=== PATIENT | male | born 1945 | race Caucasian/White ===

== ENCOUNTER 2016-08-08 15:04 | Outpatient (CLI) | payer BC | END 2016-08-08 15:05 | disposition home or self-care (01) | DX: Z95.2 Presence of prosthetic heart valve (principal) ==

== ENCOUNTER 2016-08-20 11:02 | Outpatient (CLI) | payer BC | END 2016-08-20 11:03 | disposition home or self-care (01) | DX: Z95.2 Presence of prosthetic heart valve (principal) ==

== ENCOUNTER 2016-09-18 11:02 | Outpatient (CLI) | payer BC | END 2016-09-18 11:03 | disposition home or self-care (01) | DX: Z95.2 Presence of prosthetic heart valve (principal) ==

== ENCOUNTER 2016-10-08 11:03 | Outpatient (CLI) | payer MEDICARE | END 2016-10-08 11:04 | disposition home or self-care (01) | DX: Z95.2 Presence of prosthetic heart valve (principal) ==

== ENCOUNTER 2016-10-11 09:40 | Outpatient (CLI) | payer MEDICARE | END 2016-10-11 09:41 | disposition home or self-care (01) | DX: Z95.2 Presence of prosthetic heart valve (principal) ==

== ENCOUNTER 2016-11-05 11:08 | Outpatient (CLI) | payer MEDICARE | END 2016-11-05 11:09 | disposition home or self-care (01) | DX: Z95.2 Presence of prosthetic heart valve (principal) ==

== ENCOUNTER 2017-01-28 14:12 | Outpatient (CLI) | payer MEDICARE ==
[2017-01-28 18:23] LABS: HCT - HEMATOCRIT 25.3 % (42.0-52.0); HGB - HEMOGLOBIN 8.5 g/dL (14.0-18.0)
[2017-01-28 18:38] LABS: CALCIUM 8.8 mg/dL (8.5-10.3); CREATININE 0.9 mg/dL (0.6-1.2); POTASSIUM 3.7 mmol/L (3.5-5.0)
== END 2017-01-28 14:13 | disposition home or self-care (01) ==
LOC: LAB.F 14:12
PROVIDERS: ATTEND Internal Medicine
DX: Z95.2 Presence of prosthetic heart valve (principal); K92.2 Gastrointestinal hemorrhage, unspecified
CPT/HCPCS: 36415; 80048; 85014; 85018; 85610

== ENCOUNTER 2017-01-30 10:17 | Outpatient (CLI) | payer MEDICARE ==
[2017-01-30 18:01] LABS: HCT - HEMATOCRIT 26.9 % (42.0-52.0); HGB - HEMOGLOBIN 8.7 g/dL (14.0-18.0)
== END 2017-01-30 10:18 | disposition home or self-care (01) ==
LOC: LAB.F 10:17
PROVIDERS: ATTEND Internal Medicine
DX: Z95.2 Presence of prosthetic heart valve (principal); K92.2 Gastrointestinal hemorrhage, unspecified
CPT/HCPCS: 36415; 85014; 85018; 85610

== ENCOUNTER 2017-02-02 08:00 | Outpatient (CLI) | payer MEDICARE ==
[2017-02-02 18:08] LABS: HCT - HEMATOCRIT 27.5 % (42.0-52.0)
== END 2017-02-02 08:01 | disposition home or self-care (01) ==
LOC: LAB.F 08:00
PROVIDERS: ATTEND Internal Medicine
DX: K92.2 Gastrointestinal hemorrhage, unspecified (principal); Z95.2 Presence of prosthetic heart valve
CPT/HCPCS: 36415; 85014; 85018; 85610

== ENCOUNTER 2017-02-09 13:17 | Outpatient (CLI) | payer MEDICARE | END 2017-02-09 13:18 | disposition home or self-care (01) | LOC: LAB.F 13:17 | PROVIDERS: ATTEND Internal Medicine | DX: Z95.2 Presence of prosthetic heart valve (principal) | CPT/HCPCS: 85610 ==

== ENCOUNTER 2017-02-13 09:35 | Outpatient (CLI) | payer MEDICARE ==
[2017-02-13 19:35] LABS: HCT - HEMATOCRIT 31.7 % (42.0-52.0); MEAN CORPUSCULAR HEMOGLOBIN 27.8 pg (27.0-31.0); MEAN CORPUSCULAR HGB CONC 31.7 g/dL (32.0-36.0); MEAN CORPUSCULAR VOLUME 87.7 fL (80.0-94.0); MEAN PLATELET VOLUME 8.9 fL (7.4-11.4); RED BLOOD COUNT 3.61 10^6/uL (4.70-6.10); RED CELL DISTRIBUTION WIDTH 17.1 % (12.0-15.0); WHITE BLOOD COUNT 3.2 x10^3/uL (4.8-10.8)
[2017-02-13 20:02] LABS: PSA TOTAL 0.833 ng/mL (0.000-2.000)
[2017-02-13 20:09] LABS: ALBUMIN/GLOBULIN RATIO 1.6 (1.0-2.2); BILIRUBIN,TOTAL 0.6 mg/dL (0.2-1.0); BUN - BLOOD UREA NITROGEN 16 mg/dL (6-20); CALCIUM 8.9 mg/dL (8.5-10.3); CARBON DIOXIDE - CO2 24 mmol/L (21-32); CHLORIDE 105 mmol/L (101-111); CHOL/HDL RATIO 5.4 (<5.0); CHOLESTEROL 173 mg/dL; CREATININE 0.8 mg/dL (0.6-1.2); GFR - MDRD 96 (>89); GLUCOSE 168 mg/dL (70-100); HDL CHOLESTEROL 32 mg/dL; POTASSIUM 4.3 mmol/L (3.5-5.0); SODIUM 136 mmol/L (135-145); TOTAL PROTEIN 6.9 g/dL (6.7-8.2); TRIGLYCERIDES 223 mg/dL; VLDL CHOLESTEROL 45 mg/dL
[2017-02-13 20:39] LABS: HEMOGLOBIN A1C 0.44 g/dL
== END 2017-02-13 09:36 | disposition home or self-care (01) ==
LOC: LAB.F 09:35
PROVIDERS: ATTEND Internal Medicine
DX: Z00.00 Encounter for general adult medical examination without abnormal findings (principal); I77.810 Thoracic aortic ectasia; I50.22 Chronic systolic (congestive) heart failure; M19.90 Unspecified osteoarthritis, unspecified site; I25.119 Atherosclerotic heart disease of native coronary artery with unspecified angina pectoris; E78.4 Other hyperlipidemia; E29.1 Testicular hypofunction
CPT/HCPCS: 36415; 80053; 80061; 82728; 83036; 84153; 84403

== ENCOUNTER 2017-02-23 09:52 | Outpatient (CLI) | payer MEDICARE | END 2017-02-23 09:53 | disposition home or self-care (01) | LOC: LAB.F 09:52 | PROVIDERS: ATTEND Internal Medicine | DX: Z95.2 Presence of prosthetic heart valve (principal) | CPT/HCPCS: 85610 ==

== ENCOUNTER 2017-03-11 09:44 | Outpatient (CLI) | payer MEDICARE | END 2017-03-11 09:45 | disposition home or self-care (01) | LOC: LAB.F 09:44 | PROVIDERS: ATTEND Internal Medicine | DX: Z95.2 Presence of prosthetic heart valve (principal) | CPT/HCPCS: 85610 ==

== ENCOUNTER 2017-03-16 09:28 | Outpatient (CLI) | payer MEDICARE | END 2017-03-16 09:29 | disposition home or self-care (01) | LOC: LAB.F 09:28 | PROVIDERS: ATTEND Internal Medicine | DX: Z95.2 Presence of prosthetic heart valve (principal) | CPT/HCPCS: 85610 ==

== ENCOUNTER → 2017-03-30 | Outpatient (CLI) | payer MEDICARE ==
[2017-03-30 18:42] LABS: INR 2.6 (0.8-1.2); PT - PROTHROMBIN TIME 29.6 secs (9.9-12.6)
== END ==
LOC: LAB.F 08:00
PROVIDERS: ATTEND Internal Medicine
DX: Z95.2 Presence of prosthetic heart valve (principal); Z51.81 Encounter for therapeutic drug level monitoring; Z79.01 Long term (current) use of anticoagulants
CPT/HCPCS: 36415; 85610

== ENCOUNTER 2017-04-14 13:14 | Outpatient (CLI) | payer MEDICARE | END 2017-04-14 13:15 | disposition home or self-care (01) | LOC: LAB.F 13:14 | PROVIDERS: ATTEND Internal Medicine | DX: Z95.2 Presence of prosthetic heart valve (principal) | CPT/HCPCS: 85610 ==

== ENCOUNTER 2017-04-17 12:31 | Outpatient (CLI) | payer MEDICARE | END 2017-04-17 12:32 | disposition home or self-care (01) | LOC: LAB.F 12:31 | PROVIDERS: ATTEND Internal Medicine | DX: Z95.2 Presence of prosthetic heart valve (principal) | CPT/HCPCS: 85610 ==

== ENCOUNTER 2017-05-01 10:48 | Outpatient (CLI) | payer MEDICARE | END 2017-05-01 10:49 | disposition home or self-care (01) | LOC: LAB.F 10:48 | PROVIDERS: ATTEND Internal Medicine | DX: Z95.2 Presence of prosthetic heart valve (principal) | CPT/HCPCS: 85610 ==

== ENCOUNTER 2017-06-30 10:20 | Outpatient (CLI) | payer MEDICARE | END 2017-06-30 10:21 | disposition home or self-care (01) | LOC: LAB.F 10:20 | PROVIDERS: ATTEND Internal Medicine | DX: Z95.2 Presence of prosthetic heart valve (principal) | CPT/HCPCS: 85610 ==

== ENCOUNTER 2017-07-30 11:10 | Outpatient (CLI) | payer MEDICARE | END 2017-07-30 11:11 | disposition home or self-care (01) | LOC: LAB.F 11:10 | PROVIDERS: ATTEND Internal Medicine | DX: Z95.2 Presence of prosthetic heart valve (principal) | CPT/HCPCS: 85610 ==

== ENCOUNTER 2017-09-04 11:19 | Outpatient (CLI) | payer MEDICARE | END 2017-09-04 11:20 | disposition home or self-care (01) | LOC: LAB.F 11:19 | PROVIDERS: ATTEND Internal Medicine | DX: Z95.2 Presence of prosthetic heart valve (principal) | CPT/HCPCS: 85610 ==

== ENCOUNTER 2017-09-14 11:18 | Outpatient (CLI) | payer MEDICARE | END 2017-09-14 11:19 | disposition home or self-care (01) | LOC: LAB.F 11:18 | PROVIDERS: ATTEND Internal Medicine | DX: Z95.2 Presence of prosthetic heart valve (principal) | CPT/HCPCS: 85610 ==

== ENCOUNTER 2017-09-15 08:00 | Outpatient (CLI) | payer MEDICARE ==
[2017-09-15 17:47] LABS: HGB - HEMOGLOBIN 10.1 g/dL (14.0-18.0); MEAN CORPUSCULAR HEMOGLOBIN 28.4 pg (27.0-31.0); MEAN CORPUSCULAR HGB CONC 32.5 g/dL (32.0-36.0); MEAN CORPUSCULAR VOLUME 87.4 fL (80.0-94.0); MEAN PLATELET VOLUME 8.9 fL (7.4-11.4); RED BLOOD COUNT 3.54 10^6/uL (4.70-6.10); RED CELL DISTRIBUTION WIDTH 15.1 % (12.0-15.0); WHITE BLOOD COUNT 4.5 x10^3/uL (4.8-10.8)
[2017-09-15 18:03] LABS: CALCIUM 8.7 mg/dL (8.5-10.3); CREATININE 0.9 mg/dL (0.6-1.2)
[2017-09-15 18:35] LABS: HB2 TOTAL 10.6 g/dL; HEMOGLOBIN A1C 0.74 g/dL; HEMOGLOBIN A1C % 8.5 % (4.6-6.2)
[2017-09-15 18:49] LABS: CREATININE,URINE 198.5 mg/dL; MICROALBUM/CREATININE RATIO,UR 23.2 ug/mg (<30.0); MICROALBUMIN,URINE 4.6 mg/dL (0-300.0)
== END 2017-09-15 08:01 | disposition home or self-care (01) ==
LOC: LAB.R 08:00
PROVIDERS: ATTEND Internal Medicine
DX: E11.9 Type 2 diabetes mellitus without complications (principal); Z79.4 Long term (current) use of insulin; I50.42 Chronic combined systolic (congestive) and diastolic (congestive) heart failure; I48.4 Atypical atrial flutter; I47.1 Supraventricular tachycardia; M19.90 Unspecified osteoarthritis, unspecified site; E78.4 Other hyperlipidemia; E34.9 Endocrine disorder, unspecified
CPT/HCPCS: 80048; 82043; 82570; 82728; 83036

== ENCOUNTER 2017-09-22 14:27 | Outpatient (CLI) | payer MEDICARE | END 2017-09-22 14:28 | disposition home or self-care (01) | LOC: LAB.F 14:27 | PROVIDERS: ATTEND Internal Medicine | DX: Z95.2 Presence of prosthetic heart valve (principal) | CPT/HCPCS: 85610 ==

== ENCOUNTER 2017-09-30 04:24 | Outpatient (CLI) | payer MEDICARE | END 2017-09-30 04:25 | disposition short-term general hospital (02) | LOC: EMS 04:24 | PROVIDERS: ATTEND Surgery | DX: K92.0 Hematemesis (principal); R55 Syncope and collapse; R42 Dizziness and giddiness; R53.1 Weakness; W18.39XA Other fall on same level, initial encounter; W22.8XXA Striking against or struck by other objects, initial encounter; Y92.003 Bedroom of unspecified non-institutional (private) residence as the place of occurrence of the external cause; Z79.01 Long term (current) use of anticoagulants | CPT/HCPCS: A0170; A0425; A0427 ==

== ENCOUNTER 2017-10-16 08:00 | Outpatient (CLI) | payer MEDICARE | END 2017-10-16 08:01 | disposition home or self-care (01) | LOC: LAB.F 08:00 | PROVIDERS: ATTEND Internal Medicine | DX: Z95.2 Presence of prosthetic heart valve (principal) ==

== ENCOUNTER 2017-10-19 08:00 | Outpatient (CLI) | payer MEDICARE ==
[2017-10-19 18:01] LABS: INR 1.2 (0.8-1.2); PT - PROTHROMBIN TIME 13.1 secs (9.9-12.6)
== END 2017-10-19 08:01 | disposition home or self-care (01) ==
LOC: LAB.F 08:00
PROVIDERS: ATTEND Internal Medicine
DX: Z95.2 Presence of prosthetic heart valve (principal)
CPT/HCPCS: 36415; 85610

== ENCOUNTER 2017-10-28 13:23 | Outpatient (CLI) | payer MEDICARE ==
[2017-10-28 17:58] LABS: INR 2.3 (0.8-1.2); PT - PROTHROMBIN TIME 25.2 secs (9.9-12.6)
== END 2017-10-28 13:24 | disposition home or self-care (01) ==
LOC: LAB.F 13:23
PROVIDERS: ATTEND Internal Medicine
DX: Z95.2 Presence of prosthetic heart valve (principal)
CPT/HCPCS: 36415; 85610

== ENCOUNTER 2017-12-09 13:07 | Outpatient (CLI) | payer MEDICARE | END 2017-12-09 13:08 | disposition home or self-care (01) | LOC: LAB 13:07 | PROVIDERS: ATTEND Internal Medicine | DX: Z95.2 Presence of prosthetic heart valve (principal) | CPT/HCPCS: 85610 ==

== ENCOUNTER 2017-12-15 11:02 | Outpatient (CLI) | payer MEDICARE | END 2017-12-15 11:03 | disposition home or self-care (01) | LOC: LAB.F 11:02 | PROVIDERS: ATTEND Internal Medicine | DX: Z95.2 Presence of prosthetic heart valve (principal) | CPT/HCPCS: 85610 ==

== ENCOUNTER 2017-12-22 08:23 | Outpatient (CLI) | payer MEDICARE | END 2017-12-22 08:24 | disposition home or self-care (01) | LOC: LAB.F 08:23 | PROVIDERS: ATTEND Internal Medicine | DX: Z95.2 Presence of prosthetic heart valve (principal) | CPT/HCPCS: 85610 ==

== ENCOUNTER 2017-12-29 11:22 | Outpatient (CLI) | payer MEDICARE | END 2017-12-29 11:23 | disposition home or self-care (01) | LOC: LAB.F 11:22 | PROVIDERS: ATTEND Internal Medicine | DX: Z95.2 Presence of prosthetic heart valve (principal) | CPT/HCPCS: 85610 ==

== ENCOUNTER 2018-01-12 13:25 | Outpatient (CLI) | payer MEDICARE | END 2018-01-12 13:26 | disposition home or self-care (01) | LOC: LAB.F 13:25 | PROVIDERS: ATTEND Internal Medicine | DX: Z95.2 Presence of prosthetic heart valve (principal) | CPT/HCPCS: 85610 ==

== ENCOUNTER 2018-01-19 10:15 | Outpatient (CLI) | payer MEDICARE ==
[2018-01-19 18:23] LABS: INR 3.6 (0.8-1.2); PT - PROTHROMBIN TIME 38.7 secs (9.9-12.6)
== END 2018-01-19 10:16 | disposition home or self-care (01) ==
LOC: LAB.F 10:15
PROVIDERS: ATTEND Internal Medicine
DX: Z95.2 Presence of prosthetic heart valve (principal)
CPT/HCPCS: 36415; 85610

== ENCOUNTER 2018-01-27 10:09 | Outpatient (CLI) | payer MEDICARE | END 2018-01-27 10:10 | disposition home or self-care (01) | LOC: LAB.F 10:09 | PROVIDERS: ATTEND Internal Medicine | DX: Z95.2 Presence of prosthetic heart valve (principal) | CPT/HCPCS: 85610 ==

== ENCOUNTER 2018-02-05 10:29 | Outpatient (CLI) | payer MEDICARE | END 2018-02-05 10:30 | disposition home or self-care (01) | LOC: LAB.F 10:29 | PROVIDERS: ATTEND Internal Medicine | DX: Z95.2 Presence of prosthetic heart valve (principal) | CPT/HCPCS: 85610 ==

== ENCOUNTER 2018-02-09 12:12 | Outpatient (CLI) | payer MEDICARE ==
[2018-02-09 19:07] LABS: INR 2.2 (0.8-1.2); PT - PROTHROMBIN TIME 23.6 secs (9.9-12.6)
== END 2018-02-09 12:13 | disposition home or self-care (01) ==
LOC: LAB.WCP 12:12
PROVIDERS: ATTEND Internal Medicine
DX: Z95.2 Presence of prosthetic heart valve (principal)
CPT/HCPCS: 36415; 85610

== ENCOUNTER 2018-02-12 11:41 | Outpatient (CLI) | payer MEDICARE | END 2018-02-12 11:42 | disposition home or self-care (01) | LOC: LAB 11:41 | PROVIDERS: ATTEND Internal Medicine | DX: Z95.2 Presence of prosthetic heart valve (principal) | CPT/HCPCS: 85610 ==

== ENCOUNTER 2018-02-22 10:24 | Outpatient (CLI) | payer MEDICARE | END 2018-02-22 10:25 | disposition home or self-care (01) | LOC: LAB.F 10:24 | PROVIDERS: ATTEND Internal Medicine | DX: Z95.2 Presence of prosthetic heart valve (principal) | CPT/HCPCS: 85610 ==

== ENCOUNTER 2018-02-24 12:44 | Emergency (ER) | payer MEDICARE ==
--- NOTE | 2018-02-24 12:56 | ED Physician Documentation ---
PD HPI CHEST PAIN - Stated complaint Stated Complaint: LOW HR - History obtained from History obtained from: Patient - History of Present Illness Timing - onset: Today Timing - onset during: Rest, Light activity (he woke up with feeling of mild general lightheadedness and weakness. Went to [facility] [place] for scheduled chemo and they found his heart rate to be 40 by palpation. Referred to ER for evaluation. No ECG nor monitoring done.) Timing - details: Gradual onset, Waxing and waning Quality: No: Pressure, Tightness, Aching Location: Other (just feels slightly weak.) Improved by: Rest Worsened by: Exertion Associated symptoms: General Weakness. No: Shortness of air, Nausea, Vomiting, Feeling faint / dizzy, Palpitations Similar symptoms before: Has not had sx before Recently seen: Clinic ([facility] for chemo; this would be 5th round of it.), Other ( He had stopped his Lopressor 2 weeks ago since his BP had been doing okay.) Review of Systems Constitutional: denies: Fever, Chills Nose: denies: Rhinorrhea / runny nose Throat: denies: Sore throat Cardiac: denies: Chest pain / pressure, Palpitations Respiratory: denies: Cough GI: denies: Abdominal Pain, Nausea, Vomiting, Diarrhea Skin: denies: Rash, Lesions Musculoskeletal: denies: Neck pain, Back pain, Extremity swelling Neurologic: reports: Generalized weakness. denies: Focal weakness, Numbness, Near syncope Endocrine: denies: Weight loss Immunocompromised: denies: Immunocompromised PD PAST MEDICAL HISTORY - Past Medical History Cardiovascular: Hypertension Respiratory: None Endocrine/Autoimmune: Type 2 diabetes GI: GERD, Colon polyps : None HEENT: None Psych: None Musculoskeletal: None Derm: None - Past Surgical History Past Surgical History: Yes Cardiovascular: Pacemaker Derm: Skin cancer surgery - Present Medications Home Medications: Ambulatory Orders Medication Instructions Recorded Confirmed Metoprolol Tartrate 50 mg PO DAILY 05/10/16 01/06/18 Tamsulosin [Flomax] 0.4 mg PO DAILY 05/10/16 01/06/18 Warfarin Sodium [Coumadin] 4 mg PO DAILY 05/10/16 01/06/18 LORazepam [Lorazepam] 0.5 mg PO Q6H PRN 12/05/17 01/06/18 Lidocaine/Prilocain 2.5% Cream 30 gm TOP DAILY 12/05/17 01/06/18 [Emla 2.5% Cream] Ondansetron Odt [Zofran Odt] 1 tab PO Q4H PRN 12/05/17 01/06/18 traZODone [Desyrel] 50 mg PO Q4HR PRN 01/06/18 01/06/18 - Allergies Allergies/Adverse Reactions: Allergies Allergy/AdvReac Type Severity Reaction Status Date / Time Penicillins Allergy Hives Verified 02/24/18 13:02 - Social History Does the pt smoke?: No Smoking Status: Never smoker Does the pt drink ETOH?: Yes Does the pt have substance abuse?: No PD ED PE NORMAL - Vitals Vital signs reviewed: Yes - General General: Alert and oriented X 3, No acute distress, Well developed/nourished - HEENT HEENT: Moist mucous membranes, Pharynx benign - Neck Neck: Supple, no meningeal sign, No adenopathy - Cardiac Cardiac: RRR (had monitor showing sinus with frequent PVCs. Pulse palpation does have some of the PVC not perfuse. ), No murmur - Respiratory Respiratory: Clear bilaterally - Abdomen Abdomen: Soft, Non tender - Male Male : Deferred - Rectal Rectal: Deferred - Back Back: No CVA TTP - Derm Derm: Normal color, Warm and dry - Extremities Extremities: No deformity, No tenderness to palpate, Normal ROM s pain, No edema , No calf tenderness / cord - Neuro Neuro: Alert and oriented X 3, No motor deficit, Normal speech Eye Opening: Spontaneous Motor: Obeys Commands Verbal: Oriented GCS Score: 15 Results - Vitals Vitals: Vital Signs - 24 hr 02/24/18 02/24/18 02/24/18 12:57 14:19 14:49 Temperature 36.5 C Heart Rate 91 87 91 Respiratory 15 16 18 Rate Blood Pressure 141/84 H 105/79 132/77 H O2 Saturation 96 94 95 Oxygen O2 Source Room air - EKG (time done) 12:56 Rate: Rate (enter#) (86) Rhythm: NSR, Other (frequent PVCs) [place]: Normal Intervals: Normal [place], Wide QRS (IVCD) Ischemia: Normal ST segments. No: ST elevation c/w ischemia, ST depression - Labs Labs: Laboratory Tests 02/24/18 02/24/18 02/24/18 13:40 13:40 13:40 WBC 3.4 L RBC 3.91 L Hgb 13.1 L Hct 37.9 L MCV 97.0 H MCH 33.6 H MCHC 34.7 RDW 17.0 H Plt Count 110 L MPV 8.2 Neut # (Auto) 2.4 Lymph # (Auto) 0.4 L [place] # (Auto) 0.4 Eos # (Auto) 0.1 Baso # (Auto) 0.0 Absolute Nucleated RBC 0.00 Nucleated RBC % 0.0 Sodium 132 L Potassium 4.3 Chloride 101 Carbon Dioxide 23 Anion Gap 8.0 BUN 23 H Creatinine 0.7 Estimated GFR (MDRD) 111 Glucose 273 H Calcium 8.9 Magnesium 2.0 Total Bilirubin 1.2 H AST 48 H ALT 33 Alkaline Phosphatase 139 H Troponin I < 0.04 B-Natriuretic Peptide Total Protein 6.7 Albumin 4.0 Globulin 2.7 Albumin/Globulin Ratio 1.5 Lipase 67 H 02/24/18 13:40 WBC RBC Hgb Hct MCV MCH MCHC RDW Plt Count MPV Neut # (Auto) Lymph # (Auto) [place] # (Auto) Eos # (Auto) Baso # (Auto) Absolute Nucleated RBC Nucleated RBC % Sodium Potassium Chloride Carbon Dioxide Anion Gap BUN Creatinine Estimated GFR (MDRD) Glucose Calcium Magnesium Total Bilirubin AST ALT Alkaline Phosphatase Troponin I B-Natriuretic Peptide 213 H Total Protein Albumin Globulin Albumin/Globulin Ratio Lipase PD MEDICAL DECISION MAKING - ED course Complexity details: considered differential (I think the pulse rate felt slow by palpation because of the bigeminy and some underperfused beats or or diminished perfusion. This monitor showing in sinus rhythm with a good rate. His blood pressure is good. No signs of obvious abnormality and basic blood testing. No signs of heart attack. He may be having more frequent PVCs and common for him (the patient does state PVCs are very common for him) because he is off of his beta-rodrigue. I would suggest to resume that at 25 or 50 mg daily.), d/w patient - Sepsis Event Vital Signs: Vital Signs - 24 hr 02/24/18 02/24/18 02/24/18 12:57 14:19 14:49 Temperature 36.5 C Heart Rate 91 87 91 Respiratory 15 16 18 Rate Blood Pressure 141/84 H 105/79 132/77 H O2 Saturation 96 94 95 Oxygen O2 Source Room air Departure - Departure Disposition: 01 Home, Self Care Clinical Impression: Bigeminal rhythm, Light-headed feeling Condition: Stable Record reviewed to determine appropriate education?: Yes Follow-Up: Nain Morley MD [Primary Care Provider] - Comments: You are having frequent PVCs at times every other beat called bigeminy. This might have translated into a pulse feeling low as the extra beats typically do not perfuse. However your generally her heart rate is remaining normal. I would suggest resuming your beta-rodrigue as this can decrease the amount of PVCs. Blood tests otherwise are normal without any signs of this acute abnormalities. I feel it safe for you to be discharged from the ER.
[2018-02-24 13:47] LABS: BASOPHILS % (AUTO) 1.3 %; EOSINOPHILS # (AUTO) 0.1 10^3/uL (0.0-0.7); EOSINOPHILS % (AUTO) 2.5 %; HGB - HEMOGLOBIN 13.1 g/dL (14.0-18.0); LYMPHOCYTES # (AUTO) 0.4 10^3/uL (1.5-3.5); LYMPHOCYTES % (AUTO) 11.8 %; MEAN CORPUSCULAR HEMOGLOBIN 33.6 pg (27.0-31.0); MEAN CORPUSCULAR HGB CONC 34.7 g/dL (32.0-36.0); MEAN PLATELET VOLUME 8.2 fL (7.4-11.4); MONOCYTES # (AUTO) 0.4 10^3/uL (0.0-1.0); MONOCYTES % (AUTO) 13.2 %; NEUTROPHILS # (AUTO) 2.4 10^3/uL (1.5-6.6); NEUTROPHILS % (AUTO) 71.2 %; PLT - PLATELET COUNT 110 10^3/uL (130-450); RED BLOOD COUNT 3.91 10^6/uL (4.70-6.10); WHITE BLOOD COUNT 3.4 x10^3/uL (4.8-10.8)
[2018-02-24 14:17] LABS: ALBUMIN/GLOBULIN RATIO 1.5 (1.0-2.2); BILIRUBIN,TOTAL 1.2 mg/dL (0.2-1.0); CALCIUM 8.9 mg/dL (8.5-10.3); CREATININE 0.7 mg/dL (0.6-1.2); TOTAL PROTEIN 6.7 g/dL (6.7-8.2)
[2018-02-24] MEDS ORDERED: METOPROLOL SUCCINATE 50 MG TABLET PO STA (14:35)
[2018-02-24 14:50] VITALS: BP 132/77
== END 2018-02-24 15:40 | disposition home or self-care (01) ==
LOC: ED 12:44
DX: R00.8 Other abnormalities of heart beat (principal)
CPT/HCPCS: 80053; 83690; 83735; 83880; 84484; 85025; 93005; 99283

== ENCOUNTER 2018-03-01 11:03 | Outpatient (CLI) | payer MEDICARE | END 2018-03-01 11:04 | disposition home or self-care (01) | LOC: LAB.F 11:03 | PROVIDERS: ATTEND Internal Medicine | DX: Z95.2 Presence of prosthetic heart valve (principal) | CPT/HCPCS: 85610 ==

== ENCOUNTER 2018-03-15 13:57 | Outpatient (CLI) | payer MEDICARE ==
[2018-03-15 17:49] LABS: INR 3.3 (0.8-1.2); PT - PROTHROMBIN TIME 36.1 secs (9.9-12.6)
== END 2018-03-15 13:58 | disposition home or self-care (01) ==
LOC: LAB.F 13:57
PROVIDERS: ATTEND Internal Medicine
DX: Z95.2 Presence of prosthetic heart valve (principal)
CPT/HCPCS: 85610

== ENCOUNTER 2018-03-29 13:12 | Outpatient (CLI) | payer MEDICARE | END 2018-03-29 13:13 | disposition home or self-care (01) | LOC: LAB.F 13:12 | PROVIDERS: ATTEND Internal Medicine | DX: Z95.2 Presence of prosthetic heart valve (principal) | CPT/HCPCS: 85610 ==

== ENCOUNTER 2018-04-12 11:23 | Outpatient (CLI) | payer MEDICARE | END 2018-04-12 11:24 | disposition home or self-care (01) | LOC: LAB.F 11:23 | DX: Z95.2 Presence of prosthetic heart valve (principal) | CPT/HCPCS: 85610 ==

== ENCOUNTER 2018-04-13 10:47 | Outpatient (CLI) | payer MEDICARE ==
[~2018-04-13 10:47] MED LIST: IOPAMIDOL-300 100 ML VIAL ONE; IOPAMIDOL-300 50 ML VIAL ONE
[2018-04-13] MEDS ORDERED: IOPAMIDOL-300 100 ML VIAL IVP ONE (15:01)
[2018-04-13] MEDS ORDERED: IOPAMIDOL-300 50 ML VIAL PO ONE (15:01)
--- NOTE | 2018-04-13 15:44 | CT Report ---
Reason: NEOPLASM OF CARDIA Procedure Date: 04/13/2018 Accession Number: [id number] / [id number] Procedure: CT - Chest W/ CPT Code: FULL RESULT: EXAM: CT CHEST EXAM DATE: 04/13/2018 11:51 AM. CLINICAL HISTORY: NEOPLASM OF CARDIA. COMPARISONS: None. TECHNIQUE: Routine helical CT imaging was performed through the chest. IV contrast: 100 cc Isovue-300. Oral contrast was also employed. Reconstructions: Coronal and sagittal. Coronal MIP. In accordance with CT protocol optimization, one or more of the following dose reduction techniques were utilized for this exam: automated exposure control, adjustment of mA and/or KV based on patient size, or use of iterative reconstructive technique. FINDINGS: Sternotomy is noted. Lungs/Pleura: There is a spiculated nodule of the right lower lobe medially 1.5 x 1.4 cm not including the spiculations. Series 3 image 50. There is likely atelectasis of the lower lungs. Mediastinum: There are dense calcifications of the mitral valve and aortic valve. There are dense calcifications of the coronary arteries. Cardiac pacer is noted. A right hilar lymph node measures 7 mm in short axis. Bones: There is a compression fracture of the T8 vertebral body. It is time indeterminate but has a chronic appearance. Visualized Abdomen: There is thickening of the stomach which is incompletely evaluated on CT. IMPRESSION: There is thickening of the stomach, which is incompletely evaluated on CT. 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 There is a right lower lobe spiculated nodule which is somewhat suspicious and may warrant near-term follow-up and/or biopsy as clinically indicated. RADIA
--- NOTE | 2018-04-13 15:49 | CT Report ---
Reason: NEOPLASM OF CARDIA Procedure Date: 04/13/2018 Accession Number: [id number] / [id number] Procedure: CT - Abdomen/Pelvis W/ CPT Code: FULL RESULT: EXAM: CT ABDOMEN AND PELVIS EXAM DATE: 04/13/2018 11:51 AM. CLINICAL HISTORY: NEOPLASM OF CARDIA. COMPARISONS: None. TECHNIQUE: Routine helical CT imaging was performed through the abdomen and pelvis. IV contrast: ISOVUE 300 100mL. Enteric contrast: Yes. Reconstructions: Coronal and sagittal. In accordance with CT protocol optimization, one or more of the following dose reduction techniques were utilized for this exam: automated exposure control, adjustment of mA and/or KV based on patient size, or use of iterative reconstructive technique. FINDINGS: Lung Bases: Right lower lobe spiculated nodule is imaged to advantage on concurrent chest CT. There is thickening of the stomach, which is incompletely evaluated on CT. Liver: Normal contour. No masses. Gallbladder/Bile Ducts: Unremarkable. Spleen: Normal. Pancreas: Normal. Adrenal Glands: Normal. Kidneys: Likely 1.2 cm right renal cyst. Peritoneal Cavity/Bowel: No free fluid, free air or adenopathy. No masses or acute inflammatory process. The appendix is well visualized and normal. Pelvic Organs: Normal. The bladder and visualized pelvic organs are within normal limits. Vasculature: No aneurysms or other significant abnormality. Bones: There is minimal compression of L1 which is time indeterminate. No bone lesions are seen in other regards. IMPRESSION: Thickening of the stomach may be consistent with the given history of cardia neoplasm. Right lower lobe pulmonary nodule is imaged to advantage on concurrent chest CT. RADIA
== END 2018-04-13 10:48 | disposition home or self-care (01) ==
LOC: DI 10:47
PROVIDERS: ATTEND Internal Medicine
DX: D49.0 Neoplasm of unspecified behavior of digestive system (principal); R91.1 Solitary pulmonary nodule
CPT/HCPCS: 71260; 74177; Q9967

== ENCOUNTER 2018-04-21 11:41 | Outpatient (CLI) | payer MEDICARE | END 2018-04-21 11:42 | disposition home or self-care (01) | LOC: LAB.F 11:41 | PROVIDERS: ATTEND Internal Medicine | DX: Z95.2 Presence of prosthetic heart valve (principal) | CPT/HCPCS: 85610 ==

== ENCOUNTER 2018-04-23 15:57 | Outpatient (CLI) | payer MEDICARE | END 2018-04-23 15:58 | disposition home or self-care (01) | LOC: LAB.F 15:57 | PROVIDERS: ATTEND Internal Medicine | DX: Z95.2 Presence of prosthetic heart valve (principal) | CPT/HCPCS: 85610 ==

== ENCOUNTER 2018-05-13 15:10 | Outpatient (CLI) | payer MEDICARE | END 2018-05-13 15:11 | disposition home or self-care (01) | LOC: LAB.F 15:10 | PROVIDERS: ATTEND Internal Medicine | DX: Z95.2 Presence of prosthetic heart valve (principal) | CPT/HCPCS: 85610 ==

== ENCOUNTER 2018-05-26 10:51 | Outpatient (CLI) | payer MEDICARE | END 2018-05-26 10:52 | disposition home or self-care (01) | LOC: LAB.F 10:51 | PROVIDERS: ATTEND Internal Medicine | DX: Z95.2 Presence of prosthetic heart valve (principal) | CPT/HCPCS: 85610 ==

== ENCOUNTER 2018-07-05 12:53 | Outpatient (CLI) | payer MEDICARE | END 2018-07-05 12:54 | disposition home or self-care (01) | LOC: LAB.F 12:53 | PROVIDERS: ATTEND Internal Medicine | DX: Z95.2 Presence of prosthetic heart valve (principal) | CPT/HCPCS: 85610 ==

== ENCOUNTER 2018-07-12 10:46 | Outpatient (CLI) | payer MEDICARE ==
[2018-07-12 18:36] LABS: INR 4.1 (0.8-1.2); PT - PROTHROMBIN TIME 45.8 secs (9.9-12.6)
== END 2018-07-12 10:47 | disposition home or self-care (01) ==
LOC: LAB.F 10:46
PROVIDERS: ATTEND Internal Medicine
DX: Z95.2 Presence of prosthetic heart valve (principal)
CPT/HCPCS: 36415; 85610

== ENCOUNTER 2018-08-04 13:39 | Outpatient (CLI) | payer MEDICARE | END 2018-08-04 13:40 | disposition home or self-care (01) | LOC: LAB.F 13:39 | PROVIDERS: ATTEND Internal Medicine | DX: Z95.2 Presence of prosthetic heart valve (principal) | CPT/HCPCS: 85610 ==

== ENCOUNTER 2018-08-09 10:33 | Outpatient (CLI) | payer MEDICARE | END 2018-08-09 10:34 | disposition home or self-care (01) | LOC: LAB.F 10:33 | PROVIDERS: ATTEND Internal Medicine | DX: Z95.2 Presence of prosthetic heart valve (principal) | CPT/HCPCS: 85610 ==

== ENCOUNTER 2018-08-23 11:32 | Outpatient (CLI) | payer MEDICARE | END 2018-08-23 11:33 | disposition home or self-care (01) | LOC: LAB.F 11:32 | PROVIDERS: ATTEND Internal Medicine | DX: Z95.2 Presence of prosthetic heart valve (principal) | CPT/HCPCS: 85610 ==

== ENCOUNTER 2018-09-01 15:00 | Outpatient (CLI) | payer MEDICARE | END 2018-09-01 15:01 | disposition home or self-care (01) | LOC: LAB.F 15:00 | PROVIDERS: ATTEND Internal Medicine | DX: Z95.2 Presence of prosthetic heart valve (principal) | CPT/HCPCS: 85610 ==

== ENCOUNTER 2018-09-13 10:02 | Outpatient (CLI) | payer MEDICARE | END 2018-09-13 10:03 | disposition home or self-care (01) | LOC: LAB.F 10:02 | PROVIDERS: ATTEND Internal Medicine | DX: Z95.2 Presence of prosthetic heart valve (principal) | CPT/HCPCS: 85610 ==

== ENCOUNTER 2018-09-29 08:00 | Outpatient (CLI) | payer MEDICARE | END 2018-09-29 23:59 | disposition home or self-care (01) | LOC: LAB.F 08:00 | PROVIDERS: ATTEND Internal Medicine | DX: Z95.2 Presence of prosthetic heart valve (principal) | CPT/HCPCS: 85610 ==

== ENCOUNTER 2018-10-04 12:44 | Outpatient (CLI) | payer MEDICARE | END 2018-10-04 23:59 | LOC: LAB.F 12:44 | PROVIDERS: ATTEND Internal Medicine | DX: Z95.2 Presence of prosthetic heart valve (principal) | CPT/HCPCS: 85610 ==

== ENCOUNTER 2018-10-15 10:47 | Emergency (ER) | payer MEDICARE ==
--- NOTE | 2018-10-15 11:05 | ED Physician Documentation ---
PD HPI DYSPNEA - Stated complaint Stated Complaint: LIGHT HEADEDESS,SOA - Chief complaint Chief Complaint: Cardiac - History obtained from History obtained from: Patient - History of Present Illness Timing - onset: How many days ago (1-2) Timing - onset during: Light activity Timing - duration: Days (1-2) Timing - details: Gradual onset (he has had some feeling of fatigue and dyspnea for 2-3 weeks. No edema. No cough. [place] heart rate going fast the past couple of days.), Still present Inciting event(s): No: Out of meds, URI (but has had malaise, fatigue and mild cough. not feverish nor feeling truly URI.) Improved by: Rest Worsened by: Exertion. No: Laying flat Associated symptoms: Cough (mild), Palpitations. No: Hemoptysis, Wheezing, Chest pain / discomfort, Bilateral edema Recently seen: Not recently seen Review of Systems Constitutional: reports: Myalgias, Fatigue. denies: Fever, Chills Nose: denies: Rhinorrhea / runny nose, Congestion Throat: denies: Sore throat Respiratory: reports: Dyspnea, Cough. denies: Hemoptysis, Wheezing GI: denies: Abdominal Pain, Nausea, Vomiting, Diarrhea Neurologic: reports: Generalized weakness. denies: Focal weakness, Numbness, Near syncope PD PAST MEDICAL HISTORY - Past Medical History Cardiovascular: Hypertension Respiratory: None Neuro: None Endocrine/Autoimmune: Type 2 diabetes GI: GERD, Colon polyps : None HEENT: None Psych: None Musculoskeletal: None Derm: None - Past Surgical History Past Surgical History: Yes Cardiovascular: Pacemaker Derm: Skin cancer surgery - Present Medications Home Medications: Ambulatory Orders Medication Instructions Recorded Confirmed Metoprolol Tartrate 50 mg PO DAILY 05/10/16 10/06/18 Tamsulosin [Flomax] 0.4 mg PO DAILY 05/10/16 10/06/18 Warfarin Sodium [Coumadin] 4 mg PO DAILY 05/10/16 10/06/18 Lidocaine/Prilocain 2.5% Cream 30 gm TOP DAILY 12/05/17 10/06/18 [Emla 2.5% Cream] traZODone [Desyrel] 50 mg PO Q4HR PRN 01/06/18 10/06/18 Mirtazapine [Remeron] 15 mg PO HS #30 tablet 03/18/18 10/06/18 Ondansetron Odt [Zofran Odt] 1 tab PO Q4H PRN #30 tablet 03/18/18 10/06/18 metFORMIN [Glucophage] 500 mg PO BIDWM #60 tablet 03/18/18 10/06/18 LORazepam [Ativan] 0.5 mg PO HS 06/02/18 10/06/18 Megestrol Acetate [Megace Es] 800 mg PO DAILY 08/11/18 10/06/18 Mouthwash Compounding Base 227 5 ml PO Q4H PRN 08/11/18 10/06/18 [Mouthwash-Om] - Allergies Allergies/Adverse Reactions: Allergies Allergy/AdvReac Type Severity Reaction Status Date / Time Penicillins Allergy Hives Verified 10/15/18 10:58 Nohxvhi-Ebt-Rrn Reductase AdvReac Cramps Verified 10/15/18 10:58 Inhibitor - Social History Does the pt smoke?: No Smoking Status: Never smoker Does the pt drink ETOH?: Yes Does the pt have substance abuse?: No PD ED PE NORMAL - Vitals Vital signs reviewed: Yes - General General: Alert and oriented X 3, No acute distress, Well developed/nourished - HEENT HEENT: Moist mucous membranes, Pharynx benign - Neck Neck: Supple, no meningeal sign, No adenopathy, No JVD, No bruit - Cardiac Cardiac: No murmur. No: RRR (regular but rate 135 very regular.) - Respiratory Respiratory: No respiratory distress, Clear bilaterally - Abdomen Abdomen: Soft, Non tender - Back Back: No CVA TTP - Derm Derm: Normal color, Warm and dry - Extremities Extremities: No tenderness to palpate, Normal ROM s pain, No edema, No calf tenderness / cord - Neuro Neuro: Alert and oriented X 3, No motor deficit, Normal speech Results - Vitals Vitals: Vital Signs - 24 hr 10/15/18 10/15/18 10/15/18 10:54 11:54 11:57 Temperature 36.6 C Heart Rate 14 L 133 H 130 H Respiratory 20 18 16 Rate Blood Pressure 122/80 103/71 106/69 O2 Saturation 99 96 98 10/15/18 10/15/18 10/15/18 12:01 13:10 14:03 Temperature Heart Rate 117 H 119 H 128 H Respiratory 15 16 16 Rate Blood Pressure 97/66 104/69 107/66 O2 Saturation 98 96 98 10/15/18 10/15/18 14:44 16:17 Temperature 36.7 C Heart Rate 90 94 Respiratory 18 17 Rate Blood Pressure 106/69 111/71 O2 Saturation 95 97 Oxygen O2 Source Room air - EKG (time done) 10:57 Rate: Rate (enter#) (136) Rhythm: SVT (no obvious P waves, very regular. but unusual rate for SVT. ) [place]: Normal QRS: LVH Ischemia: Normal ST segments. No: ST elevation c/w ischemia, ST depression 15:56 Rate: Rate (enter#) (64) Rhythm: NSR (p waves notable now) Intervals: Normal [place] QRS: LVH Ischemia: Normal ST segments. No: ST elevation c/w ischemia, ST depression - Labs Labs: Laboratory Tests 10/15/18 10/15/18 10/15/18 11:10 11:10 11:10 WBC 7.4 RBC 3.22 L Hgb 9.9 L Hct 29.5 L MCV 91.6 MCH 30.8 MCHC 33.6 RDW 18.0 H Plt Count 243 MPV 8.8 Neut # (Auto) 6.0 Lymph # (Auto) 0.4 L [place] # (Auto) 0.8 Eos # (Auto) 0.1 Baso # (Auto) 0.1 Absolute Nucleated RBC 0.00 Nucleated RBC % 0.0 PT INR Sodium 133 L Potassium 3.7 Chloride 103 Carbon Dioxide 18 L Anion Gap 12.0 BUN 19 Creatinine 0.7 Estimated GFR (MDRD) 111 Glucose 326 H Calcium 8.8 Magnesium Total Bilirubin 1.2 H AST 34 ALT 20 Alkaline Phosphatase 147 H Troponin I < 0.04 B-Natriuretic Peptide Total Protein 6.8 Albumin 3.3 Globulin 3.5 Albumin/Globulin Ratio 0.9 L Lipase 43 10/15/18 10/15/18 10/15/18 11:10 11:10 11:10 WBC RBC Hgb Hct MCV MCH MCHC RDW Plt Count MPV Neut # (Auto) Lymph # (Auto) [place] # (Auto) Eos # (Auto) Baso # (Auto) Absolute Nucleated RBC Nucleated RBC % PT 51.0 H INR 4.6 H* Sodium Potassium Chloride Carbon Dioxide Anion Gap BUN Creatinine Estimated GFR (MDRD) Glucose Calcium Magnesium 1.7 Total Bilirubin AST ALT Alkaline Phosphatase Troponin I B-Natriuretic Peptide 318 H Total Protein Albumin Globulin Albumin/Globulin Ratio Lipase - Rads (name of study) chest xray Radiology: Prelim report reviewed, EMP read contemporaneously (no CHF nor infiltrates), See rad report PD MEDICAL DECISION MAKING - ED course Complexity details: reviewed results, re-evaluated patient (does feel improving breathing feeling after heart rate slowed. ), considered differential (very regular rhythm, with rate 135. It did slow to 120 with metoprolol. Did not seem like an PSVT. However no flutter noted on baseline. Talked with Dr. Macario, who suggested trying Adenosine. The Adenosine did change the rhythm to NSR, so was an apparent atypical SVT. He does not seem to be in failure. Presume his dyspnea has been due to rate and should improve over this afternoon. ), d/w patient Departure - Departure Disposition: 01 Home, Self Care Clinical Impression: PSVT (paroxysmal supraventricular tachycardia), Supratherapeutic INR, Light- headed feeling Dyspnea Qualifiers: Dyspnea type: shortness of breath Qualified Code(s): R06.02 - Shortness of breath Condition: Stable Record reviewed to determine appropriate education?: Yes Instructions: ED Tachycardia Pat PSVT Follow-Up: JASPER COKER MD [Primary Care Provider] - Cee Macario MD [Provider Admit Priv/Credential] - Comments: This did ultimately seem to be a PSVT and not atrial flutter or fibrillation. It seems to be in the normal rhythm now. Continue usual medications. Follow-up with your primary care and cardiology, call for appointments. Your Coumadin level was slightly elevated at 4.9 so skip tonight's dose and then resume normal after that. Discharge Date/Time: 10/15/18 16:26
[2018-10-15] MEDS ORDERED: SODIUM CHLORIDE 0.9% 1,000 ML IV ONE (11:29)
[2018-10-15] MEDS ORDERED: METOPROLOL 5 MG/5 ML VIAL IVP STA ×2 (11:30→14:30)
[2018-10-15 11:34] LABS: BASOPHILS # (AUTO) 0.1 10^3/uL (0.0-0.1); BASOPHILS % (AUTO) 1.3 %; EOSINOPHILS # (AUTO) 0.1 10^3/uL (0.0-0.7); EOSINOPHILS % (AUTO) 0.7 %; HGB - HEMOGLOBIN 9.9 g/dL (14.0-18.0); LYMPHOCYTES # (AUTO) 0.4 10^3/uL (1.5-3.5); LYMPHOCYTES % (AUTO) 5.8 %; MEAN CORPUSCULAR HEMOGLOBIN 30.8 pg (27.0-31.0); MEAN CORPUSCULAR HGB CONC 33.6 g/dL (32.0-36.0); MEAN CORPUSCULAR VOLUME 91.6 fL (80.0-94.0); MEAN PLATELET VOLUME 8.8 fL (7.4-11.4); MONOCYTES # (AUTO) 0.8 10^3/uL (0.0-1.0); MONOCYTES % (AUTO) 11.1 %; NEUTROPHILS % (AUTO) 81.1 %; PLT - PLATELET COUNT 243 10^3/uL (130-450); RED BLOOD COUNT 3.22 10^6/uL (4.70-6.10); WHITE BLOOD COUNT 7.4 x10^3/uL (4.8-10.8)
[2018-10-15 11:35] LABS: ALBUMIN 3.3 g/dL (3.2-5.5); ALBUMIN/GLOBULIN RATIO 0.9 (1.0-2.2); BILIRUBIN,TOTAL 1.2 mg/dL (0.2-1.0); CREATININE 0.7 mg/dL (0.6-1.2); TOTAL PROTEIN 6.8 g/dL (6.7-8.2)
[2018-10-15 11:40] LABS: CALCIUM 8.8 mg/dL (8.5-10.3)
[2018-10-15 11:58] LABS: INR 4.6 (0.8-1.2)
--- NOTE | 2018-10-15 12:11 | XRAY Report ---
Reason: Tachycardia, soa Procedure Date: 10/15/2018 Accession Number: [id number] / [id number] Procedure: XR - Chest 2 View X-Ray CPT Code: 96447 FULL RESULT: EXAM: CHEST RADIOGRAPHY EXAM DATE: 10/15/2018 11:52 AM. CLINICAL HISTORY: Tachycardia, soa. COMPARISON: XR CHEST PA AND LAT 10/28/2012 9:06 AM CHEST W/ 04/13/2018 11:42 AM. TECHNIQUE: 2 views. FINDINGS: Lungs/Pleura: Linear scarring in the left lung base. No consolidation. No vascular congestion. No pneumothorax. No pleural effusions. Mediastinum: Heart size and mediastinal contour are stable. Other: Right IJ Port-A-Cath are stable. Changes again seen from median sternotomy. Marked mid thoracic spine compression deformity again seen. IMPRESSION: 1. No acute disease in the chest. 2. Linear left basilar scarring, unchanged. RADIA
[2018-10-15] MEDS: METOPROLOL 5 MG/5 ML VIAL IVP STA ×2 (13:10→13:45)
[2018-10-15] MEDS ORDERED: ADENOSINE 6 MG/2 ML VIAL IVP STA (14:01)
[2018-10-15] MEDS ORDERED: SODIUM CHLORIDE 0.9% 500 ML IV ONE (14:04)
[2018-10-15 16:18] VITALS: BP 111/71
== END 2018-10-15 16:26 | disposition home or self-care (01) ==
LOC: ED 10:47
DX: I47.2 Ventricular tachycardia (principal); R06.02 Shortness of breath; I45.81 Long QT syndrome; I10 Essential (primary) hypertension; E11.9 Type 2 diabetes mellitus without complications; Z79.84 Long term (current) use of oral hypoglycemic drugs; Z95.0 Presence of cardiac pacemaker; Z79.01 Long term (current) use of anticoagulants
CPT/HCPCS: 36415; 71046; 80053; 83690; 83735; 83880; 84484; 85025; 85610; 93005; 96361; 96374; 96375; 96376; 99283; 99284; J0153

== ENCOUNTER 2018-10-25 14:14 | Outpatient (CLI) | payer MEDICARE | END 2018-10-25 14:15 | disposition home or self-care (01) | LOC: LAB.F 14:14 | PROVIDERS: ATTEND Internal Medicine | DX: Z95.2 Presence of prosthetic heart valve (principal) | CPT/HCPCS: 85610 ==

== ENCOUNTER 2018-10-29 13:45 | Outpatient (CLI) | payer MEDICARE | END 2018-10-29 13:46 | disposition home or self-care (01) | LOC: LAB.F 13:45 | PROVIDERS: ATTEND Internal Medicine | DX: Z95.2 Presence of prosthetic heart valve (principal) | CPT/HCPCS: 85610 ==

== ENCOUNTER 2018-11-15 11:32 | Outpatient (CLI) | payer MEDICARE | END 2018-11-15 11:33 | disposition home or self-care (01) | LOC: LAB.F 11:32 | PROVIDERS: ATTEND Internal Medicine | DX: Z95.2 Presence of prosthetic heart valve (principal) | CPT/HCPCS: 85610 ==

== ENCOUNTER 2018-11-19 12:58 | Outpatient (CLI) | payer MEDICARE | END 2018-11-19 12:59 | disposition home or self-care (01) | LOC: LAB.F 12:58 | PROVIDERS: ATTEND Internal Medicine | DX: Z95.2 Presence of prosthetic heart valve (principal) | CPT/HCPCS: 85610 ==

== ENCOUNTER 2018-11-23 15:22 | Outpatient (CLI) | payer MEDICARE | END 2018-11-23 15:23 | disposition home or self-care (01) | LOC: LAB.F 15:22 | PROVIDERS: ATTEND Internal Medicine | DX: Z95.2 Presence of prosthetic heart valve (principal) | CPT/HCPCS: 85610 ==

== ENCOUNTER 2018-11-25 12:08 | Outpatient (CLI) | payer MEDICARE ==
[2018-11-25] MEDS ORDERED: IOVERSOL 320 100 ML VIAL IVP ONE ×2 (12:43→14:12)
[2018-11-25] MEDS ORDERED: IOVERSOL 320 50 ML VIAL ONE (12:44)
[2018-11-25] MEDS ORDERED: IOVERSOL 320 50 ML VIAL PO ONE (14:14)
--- NOTE | 2018-11-25 15:59 | CT Report ---
Reason: GASTRIC CANCER Procedure Date: 11/25/2018 Accession Number: [id number] / [id number] Procedure: CT - CHEST W CPT Code: FULL RESULT: EXAM: CT CHEST EXAM DATE: 11/25/2018 01:35 PM. CLINICAL HISTORY: Gastric cancer. COMPARISONS: CHEST W/ 04/13/2018 11:42 AM. TECHNIQUE: Routine helical CT imaging was performed through the chest. IV contrast: 100 mL of Optiray 320. Reconstructions: Coronal and sagittal. In accordance with CT protocol optimization, one or more of the following dose reduction techniques were utilized for this exam: automated exposure control, adjustment of mA and/or KV based on patient size, or use of iterative reconstructive technique. FINDINGS: Lungs/Pleura: There has been interval development of innumerable bilateral pulmonary metastases, for example 2.1 cm nodule in the left lower lobe on image 55 and 1.1 cm nodule in the right lower lobe on image 41. There is no pleural effusion or pneumothorax. 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 There are three-vessel coronary calcifications, mild to moderate. There is left ventricular hypertrophy. There is no pericardial effusion. Mediastinal lymph nodes do not meet size criteria. There is no hilar lymphadenopathy by size criteria. Bones: No definite aggressive osseous lesions. Redemonstration of age-indeterminate thoracic compression fracture. Visualized Abdomen: See separate report. Other: None. IMPRESSION: Progression of metastatic disease with new pulmonary nodules. RADIA
--- NOTE | 2018-11-25 15:59 | CT Report ---
Reason: GASTRIC CANCER Procedure Date: 11/25/2018 Accession Number: [id number] / [id number] Procedure: CT - Abdomen/Pelvis W CPT Code: FULL RESULT: EXAM: CT ABDOMEN AND PELVIS EXAM DATE: 11/25/2018 01:35 PM. CLINICAL HISTORY: Gastric cancer. COMPARISONS: ABDOMEN/PELVIS W/ 04/13/2018 11:42 AM. ABDOMEN W/WO 06/16/2018 2:52 PM. TECHNIQUE: Routine helical CT imaging was performed through the abdomen and pelvis. IV contrast: 100 mL Optiray 320. Enteric contrast: Yes. Reconstructions: Coronal and sagittal. In accordance with CT protocol optimization, one or more of the following dose reduction techniques were utilized for this exam: automated exposure control, adjustment of mA and/or KV based on patient size, or use of iterative reconstructive technique. FINDINGS: Lung Bases: Unremarkable. Liver: Interval progression of metastatic disease in the form of multiple hypodense lesions which are difficult to measure partially due to streak artifact from abundant gastric contrast, surgical clips and poor bolus timing. The dominant central lesion in the right lobe measures at least 4.2 x 4.6 cm as seen on coronal image 23. In contiguity with this is a segment 4A lesion which is affected by streak artifact, see image 24 series 15, examples of new lesions can be seen on axial image 26 of series 3, multiple exophytic hypodense lesions throughout the right lobe. Gallbladder/Bile Ducts: Unremarkable. Spleen: Normal. Pancreas: Normal. Adrenal Glands: Normal. Kidneys: Renal hypodensities are too small to characterize. Peritoneal Cavity/Bowel: Interval surgical changes near the pyloric region of the stomach with the known mass not well seen. There is no bowel obstruction. There is no free air or free fluid. Pelvic Organs: There is diverticulosis without diverticulitis. Vasculature: Atherosclerotic disease without aneurysm. Bones: No definite aggressive osseous lesions. Other: None. IMPRESSION: Interval progression of disease. RADIA
== END 2018-11-25 12:09 | disposition home or self-care (01) ==
LOC: DI 12:08
PROVIDERS: ATTEND Internal Medicine
DX: C16.0 Malignant neoplasm of cardia (principal); C78.7 Secondary malignant neoplasm of liver and intrahepatic bile duct; C78.02 Secondary malignant neoplasm of left lung; C78.01 Secondary malignant neoplasm of right lung
CPT/HCPCS: 71260; 74177; Q9967

== ENCOUNTER 2018-12-09 12:00 | Outpatient (CLI) | payer MEDICARE | END 2018-12-09 23:59 | disposition home or self-care (01) | LOC: LAB.F 12:00 | PROVIDERS: ATTEND Internal Medicine | DX: Z95.2 Presence of prosthetic heart valve (principal) | CPT/HCPCS: 85610 ==

== ENCOUNTER 2018-12-31 11:30 | Outpatient (CLI) | payer MEDICARE ==
--- NOTE | 2018-12-31 16:26 | CONSULTATION NOTE ---
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 He was originally diagnosed 09/30/2017 as a result of amount of emesis and syncopal episode, for which he was hospitalized. An upper endoscopy revealed partially obstructing tumor at that point in time, with the mass in the lower third of the esophagus extending into the cardia. He did receive radiation to control the bleeding, and started in December 2017 for FOLFOX. Did receive Y 90 treatment of his liver with hepatic angiogram and middle hepatic artery embolization on 07/30/2018. Patient has been on multiple therapies, as he had progressive FOLFOX. He was tried on Irinotecan, and tolerated that poorly. He was then switched to pembrolizumab, though he continued to progress with this as well. He does understand he is getting at the end of his treatment options, he is currently receiving ramucirumab and paclitaxel. He did see Dr. Gomez at [facility] [place] yesterday, but did not have any new treatment options or clinical trials available to him this was quite disappointing to both patient and his . Patient does have fairly moderate symptom burden, with fluctuating pain, intermittent constipation, severe fatigue this is most limiting symptom, as well as poorly controlled diabetes and is anticoagulated because of his heart valves. This is been somewhat more difficult to control, with his shifting health care concerns. Patient's pain is mid gastric abdominal area, it fluctuates in severity. There is no precipitating factors, he is taking oxycodone 5 mg, takes about 10 to 15 minutes to work. He does get relief with this. He averages about 3 a day. His other area of discomfort is his lower back pelvis area, this is been fairly continuous. He attributes this to his ongoing struggles with constipation, does get some relief from the discomfort when his bowels are moving well. Patient has been using MiraLAX intermittently, he does report has hard stools, and continues to struggle with intermittent constipation. Palliative care to meet with patient and , regarding advanced care planning, Anticipatory guidance, as well as addressing quality of life issues of symptom management. They do understand this is serious illness, and are recognizing the prognosis continues to be quite poor with less options available. Medical/Surgical History - Past Medical History Cardiovascular: reports: Congestive heart failure, Hypertension, High cholesterol, Coronary artery disease, Atrial fibrillation, Valve disorder (mitral and aortic) Respiratory: reports: Shortness of breath, Sleep apnea Neuro: reports: None Endocrine/Autoimmune: reports: Type 2 diabetes (developed this in less than a year) GI: reports: GERD, Colon polyps : reports: None HEENT: reports: None Psych: reports: None Musculoskeletal: reports: Osteoarthritis, Chronic back pain Derm: reports: None MRSA Hx?: No - Past Surgical History General: reports: Colonoscopy, Other (Y 90 treatemnt of liver with mid hepatic artery embolization) Cardiovascular: reports: Pacemaker, Other (valve replacement mitral/aortic) Derm: reports: Skin cancer surgery - Substance History Use: Uses substance without health or social issues: Alcohol (glass of wine nightly) Social History - Living Situation Living arrangement: At home Living Situation: With spouse/s.o. 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 He and his met when they were in their 20s, they have been together 47 years, for 45. They do have a daughter who is quite supportive, but she has 3 children and is traveling back and forth from [facility]. They do have a son who is close by and helps with practical chores, from [place]. They also have a daughter with whom they are estranged related to mental health issues, and a grandchild they do not see.. They do not think there is chance for reconciliation. Music is very important to him, he was part of the [employer] singing group, and restoration choir. Scientologist is important to him, he belongs to [employer]. He has a pending visit with the carbon paper coating machine setter.They do have a two-story home, but do have a lift for him to be able to get upstairs where his bedroom and office is. Family History - Family History Family History: Mother: (no history of cancers in family), Father: Medications/Allergies - Medications Home Medications: Ambulatory Orders Medication Instructions Recorded Confirmed Metoprolol Tartrate 50 mg PO DAILY 05/10/16 12/29/18 Tamsulosin [Flomax] 0.4 mg PO DAILY 05/10/16 12/29/18 Warfarin Sodium [Coumadin] 4 mg PO DAILY 05/10/16 12/29/18 Lidocaine/Prilocain 2.5% Cream 30 gm TOP DAILY 12/05/17 12/29/18 [Emla 2.5% Cream] traZODone [Desyrel] 50 mg PO Q4HR PRN 01/06/18 12/29/18 Mirtazapine [Remeron] 15 mg PO HS #30 tablet 03/18/18 12/29/18 LORazepam [Ativan] 0.5 mg PO HS 06/02/18 12/29/18 Megestrol Acetate [Megace Es] 800 mg PO DAILY 08/11/18 12/29/18 Mouthwash Compounding Base 227 5 ml PO Q4H PRN 08/11/18 12/29/18 [Mouthwash-Om] oxyCODONE [Roxicodone] 10 mg PO Q6H PRN 11/24/18 12/29/18 Ondansetron Odt [Zofran Odt] 1 tab PO Q4H PRN #30 tablet 12/10/18 metFORMIN [Glucophage] 500 mg PO BIDWM #120 tablet 12/10/18 - Allergies Allergies/Adverse Reactions: Allergies Allergy/AdvReac Type Severity Reaction Status Date / Time Penicillins Allergy Hives Verified 12/29/18 10:51 [id number] Reductase AdvReac Cramps Verified 12/29/18 10:51 Inhibitor Review of Systems - Constitutional Constitutional: reports: Fatigue, Weakness, Poor appetite, Weight loss. denies: Fever, Chills - Cardiovascular Cardiovascular: reports: Lightheadedness, Exertional dyspnea, Decr. exercise tolerance - Respiratory Respiratory: reports: SOB with exertion. denies: SOB at rest - Gastrointestinal Gastrointestinal: reports: Abdominal pain, Constipation, Poor appetite, Early satiety. denies: Rectal bleeding, Nausea, Reflux/heartburn - Musculoskeletal Musculoskeletal: reports: Back pain, Stiffness, Muscle weakness, Other (considering electric scooter) - Integumentary Integumentary: reports: Dryness - Neurological Neurological: reports: General weakness, Dizziness, Abnormal gait - Psychiatric Psychiatric: reports: Depression - Endocrine Endocrine: reports: Diabetes type 2 (poorly controlled; new to patient this year; has not had diabetic teaching) - Hematologic/Lymphatic Hematologic/Lymphatic: reports: Anemia - All Other Systems All Other Systems: reports: Reviewed and negative Physical Exam - Vital Signs Pulse Rate: 80 Respiratory Rate: 18 O2 Saturation: 97 (ra @ rest) Blood Pressure: 115/61 - Physical Exam General Appearance: positive: No acute distress Eyes Bilateral: positive: Normal inspection Neck: positive: No JVD, Trachea midline Cardiovascular: positive: Regular rate & rhythm Respiratory: positive: No respiratory distress, Diminished in bases. negative: Wheezes, Rales, Rhonchi Abdomen: positive: Soft Skin: positive: Pallor, Dryness Extremities: positive: No pedal edema Neurologic/Psychiatric: positive: Oriented x3, Weakness, Flat affect Palliative Care - POLST Patient has POLST: Yes POLST Status: Selective Treatment, Full Code Pain: Location (see hpi) Tiredness/Fatigue: Severe (7-10) (Patient reports limiting fatigue, with poor activity tolerance. He finds this quite distressful. When he is feeling better he is able to go to the [employer], walk 1 mile, but this fluctuates as far as his energy level.) Drowsiness/Sedation: Mild (1-3) Nausea: None Depression: None Anxiety: None Dyspnea: Moderate (4-6) Anorexia: Moderate (4-6), Weight loss Sleep: Variable sleep pattern Constipation: Yes, Opoid induced, Unmanaged Feelings of wellbeing/Perceived Quality of Life: Fair, Worsening - Palliative Care Discussion: Discussed with patient his understanding of his illness, he does understand he is holding on by his fingernails. He was quite disappointed there was no further treatment options other than what they were doing. No clinical trials and did not recommend any changes to his current regimen. He reports he is a private person, having conversations regarding some of the things were talking about his difficult, but he did engage. We did discuss sweats most important to him during this time., He does at end of life want to be at home, he was hoping to take some more trips, but his expresses concern about him being able to tolerate it. Katya his mishel , reports she is "a airport planner", she has many questions regarding what to expect, what kind of resources available in the future, and Friends that she is talked about how she is feeling, but they have not talked much between the 2 of them. She would very much like him at home, I did ask for permission to talk about hospice, reviewed the hospice support in team, early transition at the time he no longer either chooses to continue with treatment, or there is no further treatment available. He has had experience with dying with friends, particularly with prostate cancer and poorly controlled pain, did try to frame that we do have good tools, would be able to manage his pain he is only on small amounts currently, and have a long ways to go before we need to worry about not keeping him comfortable. Counseling provided just to acknowledge the difficult place they are right now, and trying to plan when we do not have specific timelines, though certainly aware that things are worsening regarding his prognosis. Results - Lab Results Lab results reviewed: Yes Lab and Imaging Results: His CT scan on 11/25/2018 showed development of bilateral pulmonary mets, progression of liver mets, with dominant central lesion in right lobe measuring 4.2 x 4.6 cm, and no definitive osseous lesions. Impression and Recommendations - Palliative Care Impression: This is a quiet 73-year-old gentleman with serious cancer of GE junction, liver mets and lung mets. He is currently continued to progress despite multiple treatments, as well as received news there are no further options or clinical trials available at this point from [facility]. He does have fairly moderate symptom burden, fatigue, anorexia, weight loss, and fluctuating pain as well as constipation. Palliative care to provide support regarding pain and symptom management as well as anticipatory guidance until transitions to hospice. Recommendations/Counseling Done: 1. Pain of neoplastic origin. Patient does have centralized abdominal pain, does respond well to oxycodone 5 mg, is using this intermittently. Counseling provided regarding if pain escalates or becomes persistent, would recommend long-acting pain medication such as fentanyl or time-released oxycodone. Prescription provided for oxycodone 5 mg 180 tabs. 2. Constipation. Patient is only been using MiraLAX, counseling provided regarding hard stools, and is instructed to increase the MiraLAX to twice daily, and add senna 8.6 mg 1-2 a day. Counseling provided regarding "mush "for softening stool with MiraLAX, and senna "push" to have a soft regular bowel movement daily. Patient does attribute this to his back pain, will see if better control of constipation decreases, it may also be related to his tumor burden. 3. Fatigue. This is multifactorial in origin. Patient does have history of intermittent dehydration, counseling provided regarding this at significantly to fatigue. Strategies reviewed with both patient and on ways to increase fluid in the importance. Patient reports "he just does not feel thirsty". Patient's also not well controlled and his diabetes, has had some fairly elevated blood sugars, we discussed how this can add to both dehydration and to fatigue. Request that he monitor and respond to this more aggressively. He wrote reports he got a new prescription from Dr. Hawk though it is not in the chart to be able to review or give description for his blood sugars. Discussed that uncontrolled pain can add to fatigue as well. Patient does appear somewhat stoic, discussed if aggressively manage constipation, can take pain medications with less concern. Discussed also could add some Ritalin if he wanted, if other interventions are not effective. Patient does have anemia, though this is been fairly long-term. Patient is quite pale. He still is ambulating up to a mile a day on good days, and likes to go to the [employer]. 4. Advanced care planning. Counseling provided regarding the continuum of care, palliative care versus hospice care, what the hospice benefit provides. It encouraged them to follow-up in getting a scooter at [facility], recommended just renting it. had multiple questions regarding the future, things that to expect, and what think she might need to plan for. She very much wants to understand his medications, in case he is not feeling well and needs assistance, I did recommend that they partner at this point in time in things that are going to make Katya feel more safe and less stressed. 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 Patient does have a POLST is full code, given our discussion of goals of care today, this is not consistent with his wishes. We agreed to follow-up and complete new POLST next visit. Visit set for next Thursday. Time Spent: 75 minutes with greater than 50% of this done in counseling regarding goals of care, symptom management, anticipatory guidance, and pain management.
== END 2018-12-31 11:31 | disposition home or self-care (01) ==
LOC: PC 11:30
PROVIDERS: ATTEND Nurse Practitioner Adult Health
DX: Z51.5 Encounter for palliative care (principal); G89.3 Neoplasm related pain (acute) (chronic); C16.0 Malignant neoplasm of cardia; C78.7 Secondary malignant neoplasm of liver and intrahepatic bile duct; Z79.899 Other long term (current) drug therapy; Z92.3 Personal history of irradiation; E11.65 Type 2 diabetes mellitus with hyperglycemia; Z79.01 Long term (current) use of anticoagulants; Z79.891 Long term (current) use of opiate analgesic; M54.5 Low back pain; R10.2 Pelvic and perineal pain; I11.0 Hypertensive heart disease with heart failure; I50.9 Heart failure, unspecified; I48.91 Unspecified atrial fibrillation; K21.9 Gastro-esophageal reflux disease without esophagitis; Z95.0 Presence of cardiac pacemaker; Z95.2 Presence of prosthetic heart valve; Z79.84 Long term (current) use of oral hypoglycemic drugs; K59.03 Drug induced constipation; T40.2X5A Adverse effect of other opioids, initial encounter; C78.01 Secondary malignant neoplasm of right lung; C78.02 Secondary malignant neoplasm of left lung; D64.9 Anemia, unspecified
CPT/HCPCS: 99205

== ENCOUNTER 2019-01-06 10:08 | Outpatient (CLI) | payer MEDICARE | END 2019-01-06 10:09 | disposition home or self-care (01) | LOC: LAB.F 10:08 | PROVIDERS: ATTEND Internal Medicine | DX: Z95.2 Presence of prosthetic heart valve (principal) | CPT/HCPCS: 85610 ==

== ENCOUNTER 2019-01-07 11:24 | Outpatient (CLI) | payer MEDICARE ==
--- NOTE | 2019-01-07 15:33 | CONSULTATION NOTE ---
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 Please see 12/31/2018 for expanded history. He was originally diagnosed in 09/30/2017, has had Y 90 treatment of the liver, and multiple chemotherapies. He recently progressed, is currently on ramucirumab and pacitaxel. He did see Dr. Gomez at [facility] [place], with no further treatment options or clinical trials. Patient does have moderate to high symptom burden, with fluctuating pain, most of his pain is localized to lower lumbar bilateral hip area. He is hesitant to take the oxycodone secondary to sedation, though he is quite fatigued when he is not taking it. He originally attributed this constipation, but is accepting that it is more disease related. He also has had a deep irritation at the GE junction, which is improved with use of his Magic mouthwash/lidocaine mix. is concerned, as patient's limiting his activity secondary to the pain, discussed at length need to have better pain control. Patient reports bowels are moving little better, is using MiraLAX and senna with good relief. Patient though continues with severe fatigue. Has been challenging to keep him hydrated, patient presents with early satiety, does not feel like he is thirsty, and continued weight loss and anorexia. Social History - Living Situation Living arrangement: At home Living Situation: With spouse/s.o. Support System: Patient with very supportive , they have been taking together for 47 years. They have met with her local ship yard electrical person, have very supportive community and family. Medications/Allergies - Medications Home Medications: Ambulatory Orders Medication Instructions Recorded Confirmed Metoprolol Tartrate 50 mg PO DAILY 05/10/16 01/07/19 Tamsulosin [Flomax] 0.4 mg PO DAILY 05/10/16 01/07/19 Warfarin Sodium [Coumadin] 4 mg PO DAILY MDD titrated by PCP 05/10/16 01/07/19 Lidocaine/Prilocain 2.5% Cream 30 gm TOP DAILY 12/05/17 01/07/19 [Emla 2.5% Cream] Mirtazapine [Remeron] 15 mg PO HS #30 tablet 03/18/18 01/07/19 LORazepam [Ativan] 0.5 mg PO HS 06/02/18 01/07/19 Mouthwash Compounding Base 227 5 ml PO Q4H PRN 08/11/18 01/07/19 [Mouthwash-Om] oxyCODONE [Roxicodone] 5 - 10 mg PO Q3HR PRN 11/24/18 01/07/19 Ondansetron Odt [Zofran Odt] 1 tab PO Q4H PRN #30 tablet 12/10/18 01/07/19 Methylphenidate [Ritalin] 5 - 10 mg PO BID PRN MDD 20 mg 01/07/19 01/07/19 metFORMIN [Glucophage] 1,000 mg PO BIDWM 01/07/19 01/07/19 - Allergies Allergies/Adverse Reactions: Allergies Allergy/AdvReac Type Severity Reaction Status Date / Time Penicillins Allergy Hives Verified 12/29/18 10:51 Zwkjzom-Nzw-Wlz Reductase AdvReac Cramps Verified 12/29/18 10:51 Inhibitor Review of Systems - Constitutional Constitutional: reports: Fatigue, Weakness, Poor appetite, Weight loss. denies: Fever, Chills - Ears, Nose & Throat Ears, Nose & Throat: reports: Other (chapped lips) - Cardiovascular Cardiovascular: reports: Decr. exercise tolerance - Respiratory Respiratory: reports: SOB with exertion. denies: SOB at rest - Gastrointestinal Gastrointestinal: reports: Reflux/heartburn, Poor appetite, Early satiety. denies: Constipation, Nausea - Musculoskeletal Musculoskeletal: reports: Back pain, Muscle aches, Stiffness, Limited range of motion, Muscle weakness - Integumentary Integumentary: reports: Dryness - Neurological Neurological: reports: General weakness, Abnormal gait - Psychiatric Psychiatric: reports: Depression, Anxiety - Endocrine Endocrine: reports: Diabetes type 2 (not tracking very closely) - Hematologic/Lymphatic Hematologic/Lymphatic: reports: Anemia (9.7) - All Other Systems All Other Systems: reports: Reviewed and negative Physical Exam - Vital Signs Pulse Rate: 106 Respiratory Rate: 18 O2 Saturation: 98 (ra @ rest) Blood Pressure: 108/63 - Physical Exam General Appearance: positive: Mild distress Eyes Bilateral: positive: Normal inspection ENT: positive: Dry mucous membranes, Other (chapped lips; recommended A & D ointment) Neck: positive: No JVD, Trachea midline Cardiovascular: positive: Tachycardia Respiratory: positive: No respiratory distress, Breath sounds nml Skin: positive: Pallor, Dryness Extremities: positive: No pedal edema Neurologic/Psychiatric: positive: Oriented x3, Mood/affect nml, Weakness, Flat affect Palliative Care - POLST Patient has POLST: Yes POLST Status: DNR, Selective Treatment (completed at visit) Pain: Pain worsening, Location (Patient only taking oxycodone 5 mg at bedtime occasionally. He is using some CBD, his pain is fairly intense and this over his lower lumbar area. It is enough it is keeping him from ambulating, difficulty eating from sitting to standing, and difficulty getting comfortable sitting. Barriers include not wanting to be sedated, concerned about constipation, and reluctance to take pain medication.) Tiredness/Fatigue: Severe (7-10) Drowsiness/Sedation: Mild (1-3) Nausea: Mild (1-3) Depression: Moderate (4-6) Anxiety: Moderate (4-6) Dyspnea: Moderate (4-6) Anorexia: Severe (7-10), Weight loss Sleep: Variable sleep pattern Constipation: Yes, Opoid induced, Managed Performance Status: Patient with declining functional status, has not been able to walk, though this is mostly attributed to his pain. He does present with poor activity tolerance, does fatigue easily, as well as breathlessness and exacerbation of his pain. Have not found outlet or resource for scooter yet, encouraged to follow up as this would improve his ability to participate in things that provide him satisfaction. - Palliative Care Discussion: Patient does understand the seriousness of his illness, he is hoping for the best and for some response to his current treatment regimen. We did discuss in the context though of advanced care planning, reintroduced the conversation regarding the POLST. Counseling provided regarding CODE STATUS and patients who have advanced cancer, statistics are poor for good outcomes. DNR does not mean do not treat, patient currently wants treatable reversible conditions, but nothing to extend suffering and quality of life is being independent and cognitive. Did discuss goals of care, currently it is to focus on improving quality of life, better symptom management, the patient continues to have functional decline and high symptom burden. Patient would treat reversible conditions, and continue with treatment at this point, does realize at some point will need to weigh benefits and burdens of continuing or treatment will not be feasible. At end of life both and patient would like him to be at home, are concerned about adequate pain control, as they have had friends with negative experiences at end of life. They have been discussing with her ship yard electrical person, and initiated con versations regarding long-term planning. POLST was completed with DNA R/allow natural and selective treatment. At this point would treat with antibiotics determining whether it is consistent with goals, including tube feedings as well if they are consistent with goals of care. Results - Lab Results Lab results reviewed: Yes Impression and Recommendations - Palliative Care Impression: This is a 73-year-old gentleman with Rich at the GE junction with liver and lung mets. He continues with high symptom burden, and ongoing functional decline, and weight loss. Palliative care to provide support regarding pain and symptom management as well as anticipatory guidance and advanced care planning. Recommendations/Counseling Done: 1. Pain of neoplastic origin. Patient presents with uncontrolled pain, finally admits it is not any longer constipation in his lower lumbar pain and back area. Patient with multiple barriers regarding taking pain pills, will schedule 3 times daily, with senna 3 times daily and MiraLAX. Reviewed if patient pain better controlled, would be able to be more active and able to ambulate. If tolerates this fine, may consider transitioning to fentanyl patch in the future of 12 mcg. 2. Constipation. Patient's bowels are moving more on a regular basis, is using MiraLAX and one senna daily with oxycodone. Counseling provided regarding titrating bowel regimen. 3. Fatigue this is multifactorial in origin, concern patient still having difficulty with dehydration. Counseling provided regarding again strategies to increase fluid intake, did review if patient feels like he is significantly de hydrated, to contact myself versus ED visit, can make arrangements for fluids. Counseling provided though oral rehydration is preferred route though. Discussed also the role of uncontrolled pain and adding to fatigue, patient is in agreement to be more aggressive with his pain management. Requested he monitor his blood sugars more closely, to see if this is problematic as well. Patient would like to try the Ritalin, prescription given for 5 mg tabs, requested initiate with half tab just to see his response, can use 1-2 tabs up to 4 tabs total. Encouraged to follow-up on getting scooter. 4. Anorexia. Patient reports only able to eat about 25% of his meals, has early satiety and things just do not taste good. We did discuss small frequent feedings, patient has been trialed on Megace before without response. Reviewed less than 50% of people respond, if did not get a consistent response before does not make sense to rechallenge. Patient is already on mirtazapine 50 mg at bedtime. Discussed the role of using CBD/THC for appetite stimulant, has used some previously for pain control. Will give it another try. Would like to initiate Decadron, but patient diabetic, and does not track sugars regularly. Counseling provided regarding strategies, will continue to monitor. 5. Advanced care planning. Facilitated conversation regarding goals of care, completing POLST, and discussion of decisions that might make in the future weighing benefits and burdens moving forward. Both are quite clear at end of life would like to be home, but is hoping that he has some good quality of life yet. Encouraged to set priorities in expenditure of energy. Agreed for courtesy visit with next chemo, will determine next visit and or if needs visit at that time. Time Spent: 60 minutes with greater than 50% of this done in counseling regarding goals of care, completion of the POLST, review of pain and symptom management and anticipatory guidance.
== END 2019-01-07 11:25 | disposition home or self-care (01) ==
LOC: PC 11:24
PROVIDERS: ATTEND Nurse Practitioner Adult Health
DX: Z51.5 Encounter for palliative care (principal); G89.3 Neoplasm related pain (acute) (chronic); C16.0 Malignant neoplasm of cardia; C78.7 Secondary malignant neoplasm of liver and intrahepatic bile duct; C78.00 Secondary malignant neoplasm of unspecified lung; R63.0 Anorexia; R63.4 Abnormal weight loss; R53.83 Other fatigue; R26.9 Unspecified abnormalities of gait and mobility; K59.03 Drug induced constipation; T40.605A Adverse effect of unspecified narcotics, initial encounter; F32.9 Major depressive disorder, single episode, unspecified; F41.9 Anxiety disorder, unspecified; E11.9 Type 2 diabetes mellitus without complications; D64.9 Anemia, unspecified; Z66 Do not resuscitate; Z79.899 Other long term (current) drug therapy; Z79.84 Long term (current) use of oral hypoglycemic drugs; Z79.01 Long term (current) use of anticoagulants
CPT/HCPCS: 99215

== ENCOUNTER 2019-01-11 11:53 | Outpatient (CLI) | payer MEDICARE | END 2019-01-11 11:54 | disposition home or self-care (01) | LOC: LAB.F 11:53 | PROVIDERS: ATTEND Internal Medicine | DX: Z95.2 Presence of prosthetic heart valve (principal) | CPT/HCPCS: 85610 ==

== ENCOUNTER 2019-01-24 13:49 | Outpatient (CLI) | payer MEDICARE | END 2019-01-24 13:50 | disposition home or self-care (01) | LOC: LAB.F 13:49 | PROVIDERS: ATTEND Internal Medicine | DX: Z95.2 Presence of prosthetic heart valve (principal) | CPT/HCPCS: 85610 ==

== ENCOUNTER 2019-01-25 10:04 | Outpatient (CLI) | payer MEDICARE ==
--- NOTE | 2019-01-25 12:06 | CONSULTATION NOTE ---
Palliative Care Follow Up - Referral Referring Provider: Jacquie STUBBS Time of Visit: [id number] Referral setting: [facility] [place] Referral Reason: Pain of neoplastic origing/GE junction CA - Information Sources Records reviewed: Previous records reviewed History/Review of Systems obtained from: Patient, Family ( and daughter present) Exam limitations: Clinical condition (patient with some STM deficits) - History of Present Illness Update Brief HPI Update: This is a 73-year-old gentleman who has stage IV adenocarcinoma of the gastroesophageal junction, with mets to liver and lung. He was originally diagnosed in 09/2017, has had Y 90 treatments to the liver, and multiple chemotherapeutic regimens. He has recently progressed, and is currently on ramucirumab and paclitaxel. This is his last line of treatment available, he had a second opinion at [facility] [place], with no further treatment options or clinical trials. Patient has had progressive pain, it does fluctuate, currently most of his pain is localized in the lower lumbar bilateral hip area. Is exacerbated with weightbearing and walking, he has been taking the oxycodone 10 mg 30 to 40 mg in 24 hours, with better control. We have adjusted his "Magic Mouthwash" He was having more trouble and pain with swallowing. He reports this is helped. He would like to add the Carafate, unclear if he is using this consistently. Patient is doing better with fatigue, is using 10 mg of the Ritalin in the a.m. He reports this does help though he is still spending most of his time sleeping and/or in bed. He currently has his daughter visiting from [facility], and is finding this quite enjoyable. His notes patient does not always take pain medication when he needs it, demonstrates through irritability and shifting pain behaviors. We did discuss in further follow-up on long-acting pain medication for better control in consistency. Patient remains challenged as far as appetite, is eating small amounts, is having difficulty getting adequate fluids. He has only had intermittent nausea, he is managing his bowels with MiraLAX and senna. Social History - Living Situation Living arrangement: At home Living Situation: With spouse/s.o. Support System: From [facility] visiting, very much enjoyed the visit. She will be here for yet another week. remains very supportive, patient with some increased confusion and difficulty tracking, does create some tension between the 2 of them. Both recognizing just a difficult road they are on. Patient supported by his [facility] community [facility]. Medications/Allergies - Medications Home Medications: Ambulatory Orders Medication Instructions Recorded Confirmed Metoprolol Tartrate 50 mg PO DAILY 05/10/16 01/25/19 Tamsulosin [Flomax] 0.4 mg PO DAILY 05/10/16 01/25/19 Warfarin Sodium [Coumadin] 4 mg PO DAILY MDD titrated by PCP 05/10/16 01/25/19 Lidocaine/Prilocain 2.5% Cream 30 gm TOP DAILY 12/05/17 01/25/19 [Emla 2.5% Cream] Mirtazapine [Remeron] 15 mg PO HS #30 tablet 03/18/18 01/25/19 LORazepam [Ativan] 0.5 mg PO HS 06/02/18 01/25/19 Mouthwash Compounding Base 227 10 - 15 ml PO Q4H PRN 08/11/18 01/25/19 [Mouthwash-Om] oxyCODONE [Roxicodone] 5 - 10 mg PO Q3HR PRN 11/24/18 01/25/19 Ondansetron Odt [Zofran Odt] 1 tab PO Q4H PRN #30 tablet 12/10/18 01/25/19 Methylphenidate [Ritalin] 5 - 10 mg PO BID PRN MDD 20 mg 01/07/19 01/25/19 metFORMIN [Glucophage] 1,000 mg PO BIDWM 01/07/19 01/25/19 Sucralfate [Carafate] 1 gm PO TID PRN 01/25/19 01/25/19 fentaNYL [Fentanyl 12mcg patch] 12 mcg TOP .Q72 HOURS 01/25/19 01/25/19 - Allergies Allergies/Adverse Reactions: Allergies Allergy/AdvReac Type Severity Reaction Status Date / Time Penicillins Allergy Hives Verified 01/25/19 09:52 Udmpjdp-Baj-Ehx Reductase AdvReac Cramps Verified 01/25/19 09:52 Inhibitor Review of Systems - Constitutional Constitutional: reports: Fatigue, Weight stable. denies: Fever, Chills - Ears, Nose & Throat Ears, Nose & Throat: reports: Postnasal drainage, Dry mouth (using biotin with some relief) - Cardiovascular Cardiovascular: reports: Irregular heart rate, Lightheadedness, Decr. exercise tolerance. denies: Chest pain - Respiratory Respiratory: reports: SOB with exertion. denies: SOB at rest - Gastrointestinal Gastrointestinal: reports: Nausea (2 episodes with relief with ondansetron), Bloating, Early satiety, Other (pain at GE junction with swallowing). denies: Constipation - Musculoskeletal Musculoskeletal: reports: Muscle pain, Back pain, Muscle aches, Stiffness, Limited range of motion, Muscle weakness - Integumentary Integumentary: reports: Dryness - Neurological Neurological: reports: General weakness, Memory problems (more cognitive slowing) - Psychiatric Psychiatric: denies: Depression, Anxiety - Endocrine Endocrine: reports: Diabetes type 2 - Hematologic/Lymphatic Hematologic/Lymphatic: reports: Anemia. denies: Recurrent infections - All Other Systems All Other Systems: reports: Reviewed and negative Physical Exam - Vital Signs Temperature: 36.7 C Pulse Rate: 76 Respiratory Rate: 16 O2 Saturation: 98 Blood Pressure: 105/65 - Physical Exam General Appearance: positive: No acute distress Eyes Bilateral: positive: Normal inspection ENT: negative: Pharyngeal erythema, Oral lesions Neck: positive: No JVD, Trachea midline Cardiovascular: positive: Regular rate & rhythm Respiratory: positive: No respiratory distress, Breath sounds nml, Diminished in bases Abdomen: positive: Soft, Nml bowel sounds Skin: positive: Pallor, Dryness Extremities: positive: No pedal edema Neurologic/Psychiatric: positive: Mood/affect nml, Disoriented to time, Weakness, Flat affect Palliative Care - POLST Patient has POLST: Yes POLST Status: DNR, Selective Treatment Pain: Pain worsening, Location (He has lower lumbar pain and pain at the esophageal junction are increasing.Currently using short acting oxycodone 10 mg 3-4 times a day, most acutely pain is on arising, sometimes does not take the medication when he could use it.) Tiredness/Fatigue: Moderate (4-6) Drowsiness/Sedation: Moderate (4-6) Nausea: Mild (1-3) Depression: Mild (1-3) Anxiety: Mild (1-3) Dyspnea: Moderate (4-6) Anorexia: Moderate (4-6) Sleep: Sleeps well Constipation: Yes, Opoid induced, Managed Feelings of wellbeing/Perceived Quality of Life: Fair, Worsening Performance Status: Patient with decreased ability to ambulate secondary to pain and fatigue. Pain does impact his gait and balance. and daughter did get him a scooter, he is somewhat hesitant to use it. He is still able to manage his own ADLs. - Palliative Care Discussion: Patient and family recognize the seriousness of his illness, they are hopeful for quantity of time, but also looking at quality of time. Patient would like increased control of his pain, and better able to tolerate activity. Patient does have POLST in place as DNA R/selective treatments. Patient hopes to be able to take a few small chips yet, though this does cause anxiety of her leaving his medical support team. Encouraged to continue to set small goals, palliative care to continue provide support and anticipatory guidance Results - Lab Results Lab results reviewed: Yes Lab and Imaging Results: CEA up to 420, no changes in treatment plan currently Impression and Recommendations - Palliative Care Impression: This is a 73-year-old gentleman with adenocarcinoma at the GE junction with liver and lung mets. He continues to have high symptom burden, ongoing functional decline, and escalating pain. Palliative care to provide support regarding pain and symptom management as well as anticipatory guidance and advanced care planning Recommendations/Counseling Done: 1. Pain of neoplastic origin. Patient had had some improvement with more regular scheduling of oxycodone, we did discuss in the context of better pain control, would initiate fentanyl 12 mcg patch. He can go ahead and use the oxycodone 5 mg for breakthrough pain, and repeat if not relief within 45 minutes to an hour. He is to track this so we can tell if we need to titrate up. 2. Constipation. Patient's bowels are moving on more regular basis, is using MiraLAX and senna appropriately. Counseling again provided regarding titrating bowel regimen, does feel like he is able to do this. 3. Fatigue, this is multifactorial in origin. Patient is quite anemic, having difficulty with dehydration, and intake. Counseling provided again regarding strategies to manage fluid/food intake. Patient is doing better as far as sedation with the Ritalin and using 10 mg daily. Patient did get a scooter, has not used yet. 4. Anorexia. Patient continues to have pain at GE junction, is finding new formula Magic mouthwash facilitating intake, but still with early satiety. Patient has not had significant weight loss, patient feels like he is having improved intake. The family feel he is not getting enough fluids, and he would concur with this. 5. Advanced care planning. POLST has been completed with DNA R/selective treatments. Patient does recognize his decline, and does have goals for better pain control, hopes to take a few trips ship, and enjoys visiting with his family. Again encouraged to set priorities regarding expenditure of energy. Plan to call if there is any questions regarding pain management, will do a phone consult next week to check on if need to titrate fentanyl further, and visit in 2 weeks with next chemo. Time Spent: 55 minutes with greater than 50% of this done in counseling regarding pain and symptom management, coordination of care with clinical staff, and anticipatory guidance
== END 2019-01-25 10:05 | disposition home or self-care (01) ==
LOC: PC 10:04
PROVIDERS: ATTEND Nurse Practitioner Adult Health
DX: Z51.5 Encounter for palliative care (principal); G89.3 Neoplasm related pain (acute) (chronic); C16.0 Malignant neoplasm of cardia; C78.7 Secondary malignant neoplasm of liver and intrahepatic bile duct; C78.00 Secondary malignant neoplasm of unspecified lung; K59.03 Drug induced constipation; T40.2X5D Adverse effect of other opioids, subsequent encounter; D64.9 Anemia, unspecified; R63.0 Anorexia; R68.81 Early satiety; Z79.899 Other long term (current) drug therapy; Z66 Do not resuscitate
CPT/HCPCS: 99215

== ENCOUNTER 2019-02-02 13:31 | Outpatient (CLI) | payer MEDICARE ==
--- NOTE | 2019-02-02 18:07 | CONSULTATION NOTE ---
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 He was originally diagnosed in 09/2017, has had Y 90 treatments to the liver, and multiple chemotherapeutic regimens. He is continue to progress, and is currently on ramucirumab and paclitaxel. His understanding this is the last line of treatment available, he did have a second opinion at [facility] [place] with no further treatment options or clinical trials. Spoke with patient yesterday, was having increased confusion, increased pain, has had functional and cognitive decline over the last several weeks, and is up only about 4-5 hours of the day. He has had decreased intake, this is both related to pain and fatigue, and when spoke with him yesterday describes symptoms of dehydration with the agreement to have a liter today. With patient's ongoing confusion, patient has not been client compliant with his medications, his is wanted to help for a while now and he is in agreement. Patient had also forgotten appointment set for today for hydration, though he had talked to nurse and written it down. Patient's pain continues to be mostly located in bilateral hips, increased pain with walking, most severe pain is at the GE junction, we have been titrating his pain medications, is currently on fentanyl 25 mcg patch. Patient reports he cannot tell much difference, is still using about 5 mg of oxycodone a couple t imes a day, but his reports he does appear much more comfortable and in less distress. He does use the "magic mouth wash" With Maalox and lidocaine 1- 1. He is also tried the Carafate, though with his intermittent confusion has not been consistent to see if this works. Patient presents is quite frail the day, pallor in color, did check labs just to rule out need for transfusion given his escalating symptoms. Social History - Living Situation Living arrangement: At home Living Situation: With spouse/s.o. 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 But did admit given the mistakes he found the day, including not taking his warfarin or follow-up on his dosing with [facility] that he is needing some increased support with this. expresses concern in private regarding patient's ongoing decline, and sees that his prognosis continues to be quite limited, is trying to prepare his daughter from [place] is currently visiting. Patient is supported by his [facility]ondo[facility] community [facility]. Medications/Allergies - Medications Home Medications: Ambulatory Orders Medication Instructions Recorded Confirmed Metoprolol Tartrate 50 mg PO DAILY 05/10/16 02/03/19 Tamsulosin [Flomax] 0.4 mg PO DAILY 05/10/16 02/03/19 Warfarin Sodium [Coumadin] 5 mg PO DAILY MDD titrated by PCP 05/10/16 02/03/19 Lidocaine/Prilocain 2.5% Cream 30 gm TOP DAILY 12/05/17 02/03/19 [Emla 2.5% Cream] Mirtazapine [Remeron] 15 mg PO HS #30 tablet 03/18/18 02/03/19 LORazepam [Ativan] 0.5 mg PO HS 06/02/18 02/03/19 Mouthwash Compounding Base 227 10 - 15 ml PO Q4H PRN 08/11/18 02/03/19 [Mouthwash-Om] oxyCODONE [Roxicodone] 5 - 10 mg PO Q3HR PRN 11/24/18 02/03/19 Ondansetron Odt [Zofran Odt] 1 tab PO Q4H PRN #30 tablet 12/10/18 02/03/19 Methylphenidate [Ritalin] 5 - 10 mg PO BID PRN MDD 20 mg 01/07/19 02/03/19 metFORMIN [Glucophage] 1,000 mg PO BIDWM 01/07/19 02/03/19 Sucralfate [Carafate] 1 gm PO TID PRN 01/25/19 02/03/19 fentaNYL [Fentanyl 12mcg patch] 25 mcg TOP .Q72 HOURS 01/25/19 02/03/19 Megestrol Acetate [Megace Es] 5 ml PO DAILY 02/03/19 02/03/19 Polyethylene Glycol 3350 [Miralax] 17 gm PO BID 02/03/19 02/03/19 Senna [Senokot] 8.6 mg PO BID 02/03/19 02/03/19 - Allergies Allergies/Adverse Reactions: Allergies Allergy/AdvReac Type Severity Reaction Status Date / Time Penicillins Allergy Hives Verified 01/25/19 09:52 Hndxcdm-Kfw-Rfr Reductase AdvReac Cramps Verified 01/25/19 09:52 Inhibitor Review of Systems - Constitutional Constitutional: reports: Fatigue, Weakness, Poor appetite, Weight loss. denies: Fever, Chills - Ears, Nose & Throat Ears, Nose & Throat: reports: Hearing loss (mild), Dry mouth. denies: Mouth lesions - Cardiovascular Cardiovascular: reports: Lightheadedness, Exertional dyspnea, Decr. exercise tolerance. denies: Edema - Respiratory Respiratory: reports: SOB with exertion. denies: SOB at rest - Gastrointestinal Gastrointestinal: reports: Constipation, Poor appetite, Early satiety. denies: Nausea - Musculoskeletal Musculoskeletal: reports: Muscle weakness - Integumentary Integumentary: reports: Dryness - Neurological Neurological: reports: General weakness, Memory problems (worsening;) - Psychiatric Psychiatric: reports: Depression, Anxiety, Aggitation - Endocrine Endocrine: reports: Diabetes type 2 (not controlled; has been not taking metformin consistently) - Hematologic/Lymphatic Hematologic/Lymphatic: reports: Anemia. denies: Recurrent infections - All Other Systems All Other Systems: reports: Reviewed and negative Physical Exam - Vital Signs Temperature: 36.6 C Pulse Rate: 90 (sitting 100 standing) Respiratory Rate: 18 Blood Pressure: 113/66 (sitting 103/66 standing) - Physical Exam General Appearance: positive: Mild distress, Other (difficulty tracking) Eyes Bilateral: positive: Normal inspection ENT: positive: Dry mucous membranes Neck: positive: Trachea midline Cardiovascular: positive: Tachycardia Respiratory: positive: No respiratory distress Skin: positive: Pallor, Dryness Extremities: positive: No pedal edema Neurologic/Psychiatric: positive: Disoriented to time, Weakness, Flat affect Palliative Care - POLST Patient has POLST: Yes POLST Status: DNR, Selective Treatment Pain: Pain worsening, Location (Patient does report new pain in right arm, he do es attribute to "loss of muscle tone", unaware of any trauma or underlying etiology.), Comment (Patient with escalating pain, have been titrating up fentanyl, did titrate to 25 mcg With some improvement. Pain most localized at the GE junction, with sharp shooting burning pains. Has been using topical lidocaine, has forgotten to use the Carafate consistently. Patient has decreased his use of oxycodone, but does have some increased and drowsiness. Is using the Ritalin first thing in the morning. Though given our conversation unclear if he has been taking medications consistently, his suspects not) Tiredness/Fatigue: Mild (1-3) Drowsiness/Sedation: Moderate (4-6) Nausea: None Depression: Mild (1-3) Anxiety: Mild (1-3) Dyspnea: Mild (1-3) Anorexia: Severe (7-10), Weight loss Sleep: Other (sleeping in chair/at night; reports up about 4-5 hours day) Performance Status: Patient with poor activity tolerance, is ambulating short distances but is spending greater than 50% of the time in his recliner or bed. Patient is able to manage his ADLs, but has been more weak and fatigued over the last 2448 hrs. with the increase in dehydration. - Palliative Care Discussion: Patient has had escalating pain, unfortunately have needed to titrate up his medications which is added to his sedation. He is having some mild confusion, exacerbated by her dehydration. And trying to engage him in conversation, regarding goals of care. Patient does have functional decline, he reports he feels the "chemo is no big deal". As he has had severe side effects in the past with other chemotherapeutic regimens. He continues to hope for a "remission". We did discuss in the context of goals of care, that at some point either the patient makes a decision regarding benefits of burdens of continuing treatment, or treatment is causing more harm than good in the focus becomes on quality of life and comfort including transition to hospice. Despite patient's fragile status, patient feels like he is not at that place yet, but was open to the conversation. Results - Lab Results Lab results reviewed: Yes Lab and Imaging Results: No significant change in his labs despite symptoms, no need for any further correction. Will receive on liter NS today. Impression and Recommendations - Palliative Care Impression: This is a 73-year-old gentleman with adenocarcinoma of the GE junction with liver and lung mets. He continues to have progressive pain, with escalation of pain medication. He does continue to have high symptom burden, ongoing functional decline, and cognitive changes that are multifactorial including related to side effects of medication and dehydration. Palliative care to provide support regarding pain and symptom management as well as anticipatory guidance and advanced care planning. Recommendations/Counseling Done: 1. Pain of neoplastic origin. Patient did have some improvement with the initiation of the fentanyl 12 mcg patch, though is still having escalating pain and use of oxycodone around 20 to 25 mg in an 24 hours. Increased fentanyl to 25 mcg a couple days ago, with improved relief. We will give him an Rx for 25 mcg patches. Given patient's intermittent confusion, reviewed these instructions with both his and patient, had a have currently just put on 2 patches yesterday. They verbalized understanding. 2. Constipation. Patient's experiencing constipation again, suspect more to do with dehydration and inconsistent medication taking. Counseling again provided regarding increasing MiraLAX to twice a day, and senna twice daily scheduled. 3. Subtherapeutic INR. In reviewing medications, appears patient has not been taking his warfarin consistently. Last pro time was on 01/24 of 1.9, he does not remember getting any instruction or following up with this. Did have lab come over and do fingerstick it was 1.1. I did contact the anticoagulant neck at [phone]. Orders reviewed received and reviewed with both patient and for 5 mg today 5 mg and Thursday then returned to his normal dosing 2.5 mg Thursday and Thursday and to have it rechecked on Thursday. They know to call and if they have not heard within 24 hours. 4. Medication adherence. Reviewed medication list, they are going to put meds in a Mediset, teaching with regarding patient's current medication schedule, patient in agreement. He does recognize he is not being adherent including with his metformin, warfarin, and other meds. 5. Anorexia. Patient continues to have pain at the GE junction, continues with early satiety and decreased intake resulting now and dehydration. Counseling provided patient has used Megace in the past, has not been consistent, reviewed if patient going to receive benefit needs to take on a daily basis at least for 7days before evaluating response. 6. Dehydration. Patient did receive 1 L of normal saline today, patient does present with ongoing decline, suspect this will be a recurrent problem the patient currently still choosing to move forward with chemo, may need regular hydration. 7. Fatigue this is multifactorial in origin. Patient remains anemic, now having again dehydration,. Counseling provided regarding strategies. 8. Advanced care planning. POLST is been completed with DNA R/selective treatments. Introduced the possibility of transitioning to hospice if patient continues to decline, patient is hoping for remission, better pain control, and extend and quantity of life as well as quality of life. Counseling provided regarding continuum of care, palliative care will continue provide support regarding pain and symptom management on a regular basis and titrate medications accordingly. Time Spent: 45 minutes with greater than 50% of this done in counseling regarding the continuum of care, pain management, medication management, and anticipatory guidance
== END 2019-02-02 13:32 | disposition home or self-care (01) ==
LOC: PC 13:31
PROVIDERS: ATTEND Nurse Practitioner Adult Health
DX: Z51.5 Encounter for palliative care (principal); G89.3 Neoplasm related pain (acute) (chronic); K59.00 Constipation, unspecified; R63.0 Anorexia; E86.0 Dehydration; R53.83 Other fatigue; R53.81 Other malaise; R41.0 Disorientation, unspecified; C16.0 Malignant neoplasm of cardia; C78.7 Secondary malignant neoplasm of liver and intrahepatic bile duct; C78.00 Secondary malignant neoplasm of unspecified lung; Z79.891 Long term (current) use of opiate analgesic; Z79.899 Other long term (current) drug therapy; Z79.01 Long term (current) use of anticoagulants; T50.996A Underdosing of other drugs, medicaments and biological substances, initial encounter; Z91.138 Patient's unintentional underdosing of medication regimen for other reason; Z66 Do not resuscitate
CPT/HCPCS: 99215

== ENCOUNTER 2019-02-08 10:17 | Outpatient (CLI) | payer MEDICARE | END 2019-02-08 10:18 | disposition home or self-care (01) | LOC: PC 10:17 | PROVIDERS: ATTEND Nurse Practitioner Adult Health | DX: Z51.5 Encounter for palliative care (principal); G89.3 Neoplasm related pain (acute) (chronic); C16.0 Malignant neoplasm of cardia; C78.7 Secondary malignant neoplasm of liver and intrahepatic bile duct; C78.00 Secondary malignant neoplasm of unspecified lung; R41.0 Disorientation, unspecified; R53.81 Other malaise; R53.83 Other fatigue; K59.03 Drug induced constipation; T40.2X5A Adverse effect of other opioids, initial encounter; R63.0 Anorexia; R63.4 Abnormal weight loss; F32.9 Major depressive disorder, single episode, unspecified; Z79.891 Long term (current) use of opiate analgesic; Z79.899 Other long term (current) drug therapy; Z88.0 Allergy status to penicillin; Z88.8 Allergy status to other drugs, medicaments and biological substances; Z66 Do not resuscitate | CPT/HCPCS: 99215 ==

== ENCOUNTER 2019-02-08 12:07 | Outpatient (CLI) | payer MEDICARE | END 2019-02-08 12:08 | disposition home or self-care (01) | LOC: LAB 12:07 | PROVIDERS: ATTEND Internal Medicine | DX: Z95.2 Presence of prosthetic heart valve (principal) | CPT/HCPCS: 85610 ==

== ENCOUNTER 2019-02-14 13:29 | Outpatient (CLI) | payer MEDICARE | END 2019-02-14 13:30 | disposition home or self-care (01) | LOC: LAB.S 13:29 | PROVIDERS: ATTEND Internal Medicine | DX: Z95.2 Presence of prosthetic heart valve (principal) | CPT/HCPCS: 85610 ==

== ENCOUNTER 2019-02-22 11:50 | Outpatient (CLI) | payer MEDICARE | END 2019-02-22 11:51 | disposition home or self-care (01) | LOC: LAB 11:50 | PROVIDERS: ATTEND Internal Medicine | DX: Z95.2 Presence of prosthetic heart valve (principal) | CPT/HCPCS: 85610 ==

== ENCOUNTER 2019-03-03 | Outpatient (CLI) | payer MEDICARE | END 2019-03-03 15:58 | disposition EMS.NT ==